=== PATIENT | male | born 1940 | race Caucasian/White ===

== ENCOUNTER 2020-03-30 09:23 | Emergency (ER) | payer MEDICARE, SELFPAY ==
[2020-03-30] VITALS (15 sets, daily range): BP systolic 139–208; BP diastolic 72–89; PULSE 73–87; RESP 14–27; TEMP 36.3; O2SAT 93–97; BMI 23.0
--- NOTE | 2020-03-30 09:29 | DI.RAD.S_ITS ---
PROCEDURE: XR CHEST 1V INDICATIONS: chest pain TECHNIQUE: One view of the chest was acquired. COMPARISON: [facility], , CHEST 2 VIEW, 08/12/2010, 8:20. FINDINGS: Surgical changes and devices: None. Lungs and pleura: Diffused bilateral pulmonary opacities are present. There is blunting of the costophrenic angles bilaterally, left greater than right. Mild increased opacity is noted in the left base and retrocardiac region. Mediastinum: Mediastinal contours appear normal. Heart size is enlarged. Bones and chest wall: No suspicious bony lesions. Overlying soft tissues appear unremarkable. IMPRESSION: Diffused bilateral pulmonary opacities are present. There is blunting of the costophrenic angles bilaterally, left greater than right. Overall appearance is suggestive of edema with superimposed areas questionable for airspace disease such as pneumonia and/or atelectasis. Dictated by: Julianna Del Rosario M.D. on 03/30/2020 at 10:15 Approved by: Julianna Del Rosario M.D. on 03/30/2020 at 10:17
[2020-03-30 09:49] LABS: Add Manual Diff / Slide Review NO; Basophils Absolute Auto 0 /uL (0-100); Basophils Percent Auto 0.3 % (0-2); Eosinophils Absolute Auto 100 /uL (0-450); Hematocrit 42.1 % (41-53); Hemoglobin 14.4 g/dL (13.5-17.5); Lymphocytes Absolute Auto 700 /uL (1100-4500); Lymphocytes Percent Auto 9.3 % (25-40); Mean Corpuscular HGB Conc 34.2 % (30-36); Mean Corpuscular Hemoglobin 29.3 PG (26-34); Mean Corpuscular Volume 85.7 fL (80-100); Monocytes Absolute Auto 700 /uL (0-900); Neutrophils Absolute Auto 5500 /uL (1500-7000); Neutrophils Percent Auto 78.4 % (50-75); Platelet Count 193 X10^3/uL (150-400); Red Blood Cell Count 4.92 X10^6/uL (4.5-5.9); Red Cell Distribution Width 14.3 % (11.6-14.8); White Blood Cell Count 7.1 X10^3/uL (4.5-11.0)
[2020-03-30 09:54] LABS: INR 1.1 (0.9-1.3); Prothrombin Time 12.8 SECONDS (10.1-12.7)
[2020-03-30 09:57] LABS: PTT Partial Thromboplastin Tim 34 SECONDS (26.4-36.2)
[2020-03-30 09:59] LABS: Alanine Aminotransferase 24 IU/L (<50); Albumin 4.2 g/dL (3.5-5.0); Albumin Globulin Ratio 1.1 (1.0-2.8); Alkaline Phosphatase 89 U/L (38-126); Aspartate Aminotransferase 27 IU/L (17-59); BUN Creatinine Ratio 15.9 (6-22); Bilirubin Total 0.9 mg/dL (0.2-1.3); Blood Urea Nitrogen 18 mg/dL (9-20); Calcium 9.1 mg/dL (8.4-10.2); Carbon Dioxide 25 mmol/L (22-32); Chloride 97 mmol/L (98-107); Creatine Kinase 59 U/L (55-170); Estimated Glomerular Filt Rate > 60.0 mL/min (>60); Globulin 3.7 g/dL (1.7-4.1); Glucose 109 mg/dL (80-110); HEMOLYSIS < 15 (0-50); Lipase 41 U/L (23-300); Potassium 4.4 mmol/L (3.4-5.1); Sodium 131 mmol/L (137-145); Total Protein 7.9 g/dL (6.3-8.2)
--- NOTE | 2020-03-30 10:17 | ED_ITS ---
HPI - Chest Pain General Chief Complaint: Chest Pain Stated Complaint: Mild Chest Pain Time Seen by Provider: 03/30/20 09:29 Source: patient Mode of arrival: Family Vehicle Limitations: no limitations History of Present Illness HPI narrative: Patient is a 80-year-old male with history of hypertension and PVCs presenting with left-sided chest pain. He states that over last month he has had increasing shortness of breath and cough.. He complains of orthopnea needing to sleep in a recliner. He has also had a nonproductive cough. Today he started noticing some left-sided chest achiness he says very mild now he thinks maybe he pulled something while coughing but does not hurt me takes a deep breath and is not reproducible. He says it radiates up into his left shoulder at times. He is noted actually be quite hypertensive he says he has been out of his blood pressure medication for about 2 months. He does get short of breath with exertion as well. He denies any fever no lower extremity edema. patient's DPOA is alexandra emery cell phone number [phone] complaint: chest pain Onset (ago): hour(s) Duration: constant Severity: mild Quality: aching Pain radiation: LUE Relieving factors: nothing Related Data Home Medications Medication Instructions Recorded Confirmed AMLODIPINE BESYLATE (NORVASC) 10 mg PO AM #0 03/22/10 TRIAMTERENE (Dyrenium) 37.5 mg PO AM #0 03/22/10 Allergies Allergy/AdvReac Type Severity Reaction Status Date / Time No Known Allergies Allergy Verified 03/30/20 10:30 Review of Systems Review of Systems ROS Unobtainable: All systems reviewed & are unremarkable except as noted in HPI and below Constitutional Constitutional: Denies chills, Denies fever(s), Denies lethargy and Denies weakness Eyes Eyes: Denies change in vision, Denies eye discharge, Denies irritation and Denies loss of vision Cardiovascular Cardiovascular: Reports chest pain, Denies irregular heart rhythm, Denies lightheadedness, Denies palpitations, Reports dyspnea and Denies orthopnea Respiratory Respiratory: Reports cough, Denies excessive phlegm production and Reports dyspnea Gastrointestinal Gastrointestinal: Denies abdominal pain, Denies change in bowel habits, Denies diarrhea, Denies nausea and Denies vomiting Musculoskeletal Musculoskeletal: Denies arthralgias and Denies back pain Integumentary/Breasts Skin/Breast: Denies pruritus, Denies erythema, Denies rash and Denies wounds Neurologic Neurologic: Denies loss of vision and Denies weakness Endocrine Endocrine: Denies palpitations Patient History Medical History Hypertension Social History Smoking Status: Former smoker Smoking Status: Former smoker alcohol intake frequency: 0-2 drinks per day Substance Use Type: does not use Exam Initial Vital Signs Initial Vital Signs: Vital Signs Temperature 97.4 F L 03/30/20 09:25 Pulse Rate 80 03/30/20 09:25 Respiratory Rate 18 03/30/20 09:25 Blood Pressure 166/79 H 03/30/20 09:25 Pulse Oximetry 96 03/30/20 09:25 GENERAL: Patient is alert pleasant male HEENT: Head atraumatic,EOMI, pupils reactive, face symmetric, moist mucous membranes CARDIOVASCULAR: Regular rate and rhythm without murmurs, rubs or gallops. Pain is not reproducible RESPIRATORY: Breath sounds equal bilaterally, no wheezes rales or rhonchi. ABDOMEN: Soft, nontender. Normoactive bowel sounds all 4 quadrants. No g uarding or rebound. EXTREMITIES: Normal range of motion, no clubbing or edema. Neurovascularly inta ct NEUROLOGICAL: Alert and oriented x4.Normal gait and speech. SKIN: Warm, dry, no laceration, no petechiae, no rashes or lesions. Course Orders Ordered: ED Orders 03/30/20 09:29 XR chest 1V Stat EKG-12 Lead Stat 03/30/20 09:40 Complete Blood Count AUTO DIFF Stat Comprehensive Metabolic Panel Stat D Dimer Stat Lipase Stat NT-proBNP (BNP-Adult 18+) Stat Partial Thromboplastin Time Stat Prothrombin Time INR Stat Troponin & CK Cardiac Panel Stat 03/30/20 10:33 EKG-12 Lead Stat 03/30/20 10:39 CT angio chest abdomen pelvis Stat 03/30/20 10:55 COVID19 Stat Discontinued Medications Aspirin (Aspirin 81 Mg Chew Tab) 324 mg PO NOW ONE Stop: 03/30/20 10:07 Last Admin: 03/30/20 10:24 Dose: 324 mg Documented by: CVANCE Furosemide (Furosemide 40 Mg/4 Ml Vial) 20 mg IV NOW ONE Stop: 03/30/20 10:35 Last Admin: 03/30/20 10:57 Dose: 20 mg Documented by: CARLOS ALBERTO Heparin Sodium (Porcine) (Heparin 5,000 Unit/Ml Vial) 4,000 unit IV NOW ONE Stop: 03/30/20 10:35 Last Admin: 03/30/20 11:00 Dose: 4,000 unit Documented by: CARLOS ALBERTO Heparin Sodium/Dextrose (Heparin Drip) 25,000 unit in 500 mls @ 17.962 mls/hr IV CONT AZUL; Protocol Last Admin: 03/30/20 11:02 Dose: 12 units/kg/hr, 17.962 mls/hr Documented by: CARLOS ALBERTO Nitroglycerin (Nitroglycerin 0.4 Mg Sl Tab) 0.4 mg SL NOW ONE Stop: 03/30/20 10:07 Last Admin: 03/30/20 10:25 Dose: 0.4 mg Documented by: CVANCE Vital Signs Vital signs: Vital Signs - 8 hr 03/30/20 09:25 03/30/20 09:31 03/30/20 10:00 Temperature 97.4 F L Pulse Rate 80 79 Respiratory Rate 18 19 Blood Pressure 166/79 H 166/79 H Pulse Oximetry 96 97 95 03/30/20 10:01 03/30/20 10:25 03/30/20 10:30 Temperature Pulse Rate 78 77 78 Respiratory Rate 21 Blood Pressure 208/87 H 208/87 H Pulse Oximetry 96 95 03/30/20 10:31 03/30/20 10:48 03/30/20 11:00 Temperature Pulse Rate 79 78 73 Respiratory Rate 16 20 18 Blood Pressure 139/72 145/83 H Pulse Oximetry 93 95 96 03/30/20 11:01 03/30/20 11:30 03/30/20 11:31 Temperature Pulse Rate 74 79 76 Respiratory Rate 16 14 15 Blood Pressure 178/79 H Pulse Oximetry 96 94 95 03/30/20 12:00 03/30/20 12:01 03/30/20 12:30 Temperature Pulse Rate 76 77 87 Respiratory Rate 20 20 27 H Blood Pressure 189/89 H 181/89 H Pulse Oximetry 96 96 94 MDM - Chest Pain Lab Data Attestation: I reviewed the patient's lab results. Result diagrams: 03/30/20 09:40 03/30/20 09:40 Labs: Lab Results 03/30/20 03/30/20 03/30/20 Range/Units 09:40 09:40 09:40 WBC 7.1 (4.5-11.0) X10^3/uL RBC 4.92 (4.5-5.9) X10^6/uL Hgb 14.4 (13.5-17.5) g/dL Hct 42.1 (41-53) % MCV 85.7 (80-100) fL MCH 29.3 (26-34) PG MCHC 34.2 (30-36) % RDW 14.3 (11.6-14.8) % Plt Count 193 (150-400) X10^3/uL Neut % (Auto) 78.4 H (50-75) % Lymph % (Auto) 9.3 L (25-40) % [place] % (Auto) 10.0 (3-14) % Eos % (Auto) 2.0 (2-4) % Baso % (Auto) 0.3 (0-2) % Neut # (Auto) 5500 (6101-9919) /uL Lymph # (Auto) 700 L (7994-3681) /uL [place] # (Auto) 700 (0-900) /uL Eos # (Auto) 100 (0-450) /uL Baso # (Auto) 0 (0-100) /uL PT 12.8 H (10.1-12.7) SECONDS INR 1.1 (0.9-1.3) APTT 34 (26.4-36.2) SECONDS D-Dimer (<230) ng/mL Sodium 131 L (137-145) mmol/L Potassium 4.4 (3.4-5.1) mmol/L Chloride 97 L (98-107) mmol/L Carbon Dioxide 25 (22-32) mmol/L BUN 18 (9-20) mg/dL Creatinine 1.13 (0.66-1.25) mg/dL Estimated GFR > 60.0 (>60) mL/min BUN/Creatinine Ratio 15.9 (6-22) Glucose 109 (80-110) mg/dL Calcium 9.1 (8.4-10.2) mg/dL Total Bilirubin 0.9 (0.2-1.3) mg/dL AST 27 (17-59) IU/L ALT 24 (<50) IU/L Alkaline Phosphatase 89 (38-126) U/L Total Creatine Kinase 59 (55-170) U/L CK-MB (CK-2) TNP CK-MB (CK-2) Rel Index TNP Troponin I 0.230 H* (0.01-0.034) ng/mL NT-Pro-B Natriuret Pep (<450) pg/mL Total Protein 7.9 (6.3-8.2) g/dL Albumin 4.2 (3.5-5.0) g/dL Globulin 3.7 (1.7-4.1) g/dL Albumin/Globulin Ratio 1.1 (1.0-2.8) Lipase 41 (23-300) U/L COVID-19 PCR (Negative) 03/30/20 03/30/20 03/30/20 Range/Units 09:40 09:40 10:55 WBC (4.5-11.0) X10^3/uL RBC (4.5-5.9) X10^6/uL Hgb (13.5-17.5) g/dL Hct (41-53) % MCV (80-100) fL MCH (26-34) PG MCHC (30-36) % RDW (11.6-14.8) % Plt Count (150-400) X10^3/uL Neut % (Auto) (50-75) % Lymph % (Auto) (25-40) % [place] % (Auto) (3-14) % Eos % (Auto) (2-4) % Baso % (Auto) (0-2) % Neut # (Auto) (8350-4869) /uL Lymph # (Auto) (8554-4311) /uL [place] # (Auto) (0-900) /uL Eos # (Auto) (0-450) /uL Baso # (Auto) (0-100) /uL PT (10.1-12.7) SECONDS INR (0.9-1.3) APTT (26.4-36.2) SECONDS D-Dimer < 200 (<230) ng/mL Sodium (137-145) mmol/L Potassium (3.4-5.1) mmol/L Chloride (98-107) mmol/L Carbon Dioxide (22-32) mmol/L BUN (9-20) mg/dL Creatinine (0.66-1.25) mg/dL Estimated GFR (>60) mL/min BUN/Creatinine Ratio (6-22) Glucose (80-110) mg/dL Calcium (8.4-10.2) mg/dL Total Bilirubin (0.2-1.3) mg/dL AST (17-59) IU/L ALT (<50) IU/L Alkaline Phosphatase (38-126) U/L Total Creatine Kinase (55-170) U/L CK-MB (CK-2) CK-MB (CK-2) Rel Index Troponin I (0.01-0.034) ng/mL NT-Pro-B Natriuret Pep 6440 H (<450) pg/mL Total Protein (6.3-8.2) g/dL Albumin (3.5-5.0) g/dL Globulin (1.7-4.1) g/dL Albumin/Globulin Ratio (1.0-2.8) Lipase (23-300) U/L COVID-19 PCR Negative (Negative) Urine Dip Bedside Urine Glucose Negative Bedside Urine Bilirubin - Negative Bedside Urine Ketone - Negative Urine Specific [place] 1.015 Bedside Urine Occult Blood - Negative Bedside Urine pH 6.0 Bedside Urine Protein - Negative Bedside Urine Urobilinogen - Negative Bedside Urine Nitrite - Negative Bedside Urine Leukocytes - Negative Esterase Imaging Data Chest x-ray: Radiologist's Impression: PROCEDURE: XR CHEST 1V INDICATIONS: chest pain TECHNIQUE: One view of the chest was acquired. COMPARISON: Merged With [facility], , CHEST 2 VIEW, 08/12/2010, 8:20. FINDINGS: Surgical changes and devices: None. Lungs and pleura: Diffused bilateral pulmonary opacities are present. There is blunting of the costophrenic angles bilaterally, left greater than right. Mild increased opacity is noted in the left base and retrocardiac region. Mediastinum: Mediastinal contours appear normal. Heart size is enlarged. Bones and chest wall: No suspicious bony lesions. Overlying soft tissues appear unremarkable. IMPRESSION: Diffused bilateral pulmonary opacities are present. There is blunting of the costophrenic angles bilaterally, left greater than right. Overall appearance is suggestive of edema with superimposed areas questionable for airspace disease such as pneumonia and/or atelectasis. Dictated by: Julianna Del Rosario M.D. on 03/30/2020 at 10:15 CT scan - chest: Radiologist's Impression: PROCEDURE: CT ANGIO CHEST ABDOMEN PELVIS INDICATIONS: chest pain htn TECHNIQUE: Precontrast 5 mm thick sections acquired from the lung apices to the iliac crests. After the administration of intravenous contrast, 2.5 mm thick sections again acquired from the lung apices to the iliac crests. Maximum intensity projection (MIP) oblique sagittal and coronal reformats were then acquired. For radiation dose reduction, the following was used: automated exposure control. COMPARISON: CT, IVP (ABD & PEL WWO CONTRAST), 03/23/2013, 7:15. Merged With [facility], CT, CT-IVP, 02/25/2010, 10:20. Merged With [facility], CR, XR CHEST 1V, 03/30/2020, 9:36. FINDINGS: Image quality: Excellent. AORTA: Noncontrast images demonstrate no evidence of intramural hematoma. There is extensive atherosclerotic vascular calcification along the aorta and its branch vessels. The aorta is normal in caliber and contour. No intimal flaps to suggest dissection. There is a 4 vessel aortic arch with separate origin of the left vertebral artery. 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 There is subsequent reconstitution of the left subclavian artery through collateral vessels. The left axillary and visualized left brachial arteries appear patent. The remaining great vessels appear patent with visualized. The celiac, superior mesenteric, and inferior mesenteric arteries appear patent. There are single renal arteries bilaterally. There is atherosclerotic plaque at the origins of the renal arteries bilaterally with narrowing of up to approximately 50-60% of the right renal artery ostium. On the left, there is mild narrowing of less than 50% at its origin. There is segmental narrowing in the right common iliac artery up to approximately 50%. There is also mild narrowing in the left common iliac artery of less than 50%. Multifocal mild narrowing is also demonstrated within the bilateral external and internal iliac arteries of likely less than 50%. CHEST: Lungs and pleura: There are small bilateral pleural effusions with associated compressive atelectasis. There are a few confluent areas of indistinct ground- glass opacities with septal thickening in the bilateral upper lobes medially. There is mild bronchiectasis bilaterally and mild bronchial wall thickening with a basilar predominance. Mediastinum: Heart size is enlarged. There is moderate coronary arterial vascular calcification. There is a small pericardial effusion. There are mildly enlarged mediastinal lymph nodes including a right paratracheal node measuring up to 1.1 cm. A insurance verification representative aortopulmonary window node measures up to 1.1 cm. Mild concentric esophageal wall thickening is demonstrated distally. Bones and chest wall: No axillary adenopathy by size criteria. No suspicious bony lesions. No vertebral body compression fractures. ABDOMEN: Vasculature: Celiac trunk and mesenteric arteries are patent. Renal arteries are also patent. Solid organs: Evaluation of the liver demonstrates no focal hepatic lesions. The gallbladder appears within normal limits without calcified gallstones. Biliary system is non-dilated. Pancreas enhances normally. No peripancreatic fat stranding or fluid collections. No pancreatic duct dilatation. The spleen is normal in size. T here is an indeterminate left adrenal nodule measuring up to 2.2 by 1.6 cm. Kidneys demonstrate no hydronephrosis. There are few bilateral renal cysts. These include exophytic hyperdense cysts posteriorly on the right measuring up to 2.1 cm and laterally on the left measuring up to 2.0 cm. Peritoneum and bowel: No free fluid or air. Bowel loops are normal in caliber and wall thickness. Nodes and vessels: No retroperitoneal or mesenteric adenopathy by size criteria. Inferior vena cava is normal in morphology. Miscellaneous: No ventral hernias. PELVIS: Genitourinary: Bladder wall thickness is normal. Miscellaneous: No inguinal hernias or adenopathy. No ventral hernias. Bones: No suspicious bony lesions. There are few mild anterior compression deformities of the lower thoracic and upper lumbar spine which appears similar to the prior abdominal studies with visualized. No retropulsed fragments in the spinal canal. IMPRESSION: 1. No evidence of aortic dissection or aneurysm. 2. 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 3. Small bilateral pleural effusions with associated compressive atelectasis. 4. Bilateral mild bronchiectasis and bronchial wall thickening with a basilar predominance. Findings raise the possibility of aspiration. 5. Small clustered ground-glass opacities with septal thickening in the upper lobes. The findings are nonspecific and the differential includes pneumonia including from atypical organisms as well as inflammatory processes. 6. Mild mediastinal lymphadenopathy is nonspecific and may be reactive. Dictated by: Eugene Canas M.D. on 03/30/2020 at 10:55 ECG Data Attestation: I personally reviewed and interpreted this ECG as follows: Interpretation: -EKG 1. Sinus rhythm rate 82 with PVCs noted T-wave inversions noted be [address] elevations EKG 2. Sinus rhythm rate 78 PVCs again noted now having T-wave inversions V4 V5 and V6 MDM Narrative Medical decision making narrative: Patient is having left-sided chest pain radiating up to his left shoulder. Sounds though he has had CHF like symptoms ongoing for about 1 month with orthopnea. And shortness of breath with exertion. BNP 8 is elevated at 6400. Pain is completely resolved with 1 n itroglycerin. He states that he has not been taking his blood pressure medication for about the last 2 months. Due to hypertension and left-sided chest pain ruled out dissection with CT [address] Palencia cardiology at [facility] updated on patient's symptoms test results agrees with admitting to hospitalist at this time 11:20 Dr. Wyatt Rehman to the hospitalist updated patient's symptoms test results agrees with admission and transfer The patient's DPOA is alexandra stajhonny emery cell phone number [phone] Critical Care Time Critical Care Time Critical Care Time: Yes Total Critical Care Time: 30 Attestation: The high probability of a clinically significant, sudden or life threatening deterioration of the [cardiovascular] system(s) required my full and direct attention, intervention and personal management. The aggregate critical care time was 30 minutes. This time is in addition to time spent performing reported procedures but includes the following: [x] Data Review and interpretation [x] Patient assessment and monitoring of vital signs [x] Documentation [x] Medication orders and management Discharge Plan Departure Patient Disposition: Xfer [facility] Clinical Impression: Acute non-ST elevation myocardial infarction (NSTEMI), CHF (congestive heart failure) Prescriptions: No Action AMLODIPINE BESYLATE (NORVASC) 10 mg PO AM Qty: 0 RF: 0 TRIAMTERENE (Dyrenium) 37.5 mg PO AM Qty: 0 RF: 0 Referrals: Rene Claros MD [Primary Care Provider] -
[2020-03-30] MEDS: ASPIRIN 81 MG CHEW TAB 324 MG PO (10:24)
[2020-03-30] MEDS: NITROGLYCERIN 0.4 MG SL TAB SL (10:25)
[2020-03-30 10:26] LABS: D Dimer < 200 ng/mL (<230)
[2020-03-30 10:31] LABS: NT-proBNP (BNP-Adult 18+) 6440 pg/mL (<450)
--- NOTE | 2020-03-30 10:39 | DI.CT.S_ITS ---
PROCEDURE: CT ANGIO CHEST ABDOMEN PELVIS INDICATIONS: chest pain htn TECHNIQUE: Precontrast 5 mm thick sections acquired from the lung apices to the iliac crests. After the administration of intravenous contrast, 2.5 mm thick sections again acquired from the lung apices to the iliac crests. Maximum intensity projection (MIP) oblique sagittal and coronal reformats were then acquired. For radiation dose reduction, the following was used: automated exposure control. COMPARISON: CT, IVP (ABD & PEL WWO CONTRAST), 03/23/2013, 7:15. [facility], CT, CT-IVP, 02/25/2010, 10:20. [facility], CR, XR CHEST 1V, 03/30/2020, 9:36. FINDINGS: Image quality: Excellent. AORTA: Noncontrast images demonstrate no evidence of intramural hematoma. There is extensive atherosclerotic vascular calcification along the aorta and its branch vessels. The aorta is normal in caliber and contour. No intimal flaps to suggest dissection. There is a 4 vessel aortic arch with separate origin of the left vertebral artery. 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 There is subsequent reconstitution of the left subclavian artery through collateral vessels. The left axillary and visualized left brachial arteries appear patent. The remaining great vessels appear patent with visualized. The celiac, superior mesenteric, and inferior mesenteric arteries appear patent. There are single renal arteries bilaterally. There is atherosclerotic plaque at the origins of the renal arteries bilaterally with narrowing of up to approximately 50-60% of the right renal artery ostium. On the left, there is mild narrowing of less than 50% at its origin. There is segmental narrowing in the right common iliac artery up to approximately 50%. There is also mild narrowing in the left common iliac artery of less than 50%. Multifocal mild narrowing is also demonstrated within the bilateral external and internal iliac arteries of likely less than 50%. CHEST: Lungs and pleura: There are small bilateral pleural effusions with associated compressive atelectasis. There are a few confluent areas of indistinct ground-glass opacities with septal thickening in the bilateral upper lobes medially. There is mild bronchiectasis bilaterally and mild bronchial wall thickening with a basilar predominance. Mediastinum: Heart size is enlarged. There is moderate coronary arterial vascular calcification. There is a small pericardial effusion. There are mildly enlarged mediastinal lymph nodes including a right paratracheal node measuring up to 1.1 cm. A sales representative uniforms aortopulmonary window node measures up to 1.1 cm. Mild concentric esophageal wall thickening is demonstrated distally. Bones and chest wall: No axillary adenopathy by size criteria. No suspicious bony lesions. No vertebral body compression fractures. ABDOMEN: Vasculature: Celiac trunk and mesenteric arteries are patent. Renal arteries are also patent. Solid organs: Evaluation of the liver demonstrates no focal hepatic lesions. The gallbladder appears within normal limits without calcified gallstones. Biliary system is non-dilated. Pancreas enhances normally. No peripancreatic fat stranding or fluid collections. No pancreatic duct dilatation. The spleen is normal in size. There is an indeterminate left adrenal nodule measuring up to 2.2 by 1.6 cm. Kidneys demonstrate no hydronephrosis. There are few bilateral renal cysts. These include exophytic hyperdense cysts posteriorly on the right measuring up to 2.1 cm and laterally on the left measuring up to 2.0 cm. Peritoneum and bowel: No free fluid or air. Bowel loops are normal in caliber and wall thickness. Nodes and vessels: No retroperitoneal or mesenteric adenopathy by size criteria. Inferior vena cava is normal in morphology. Miscellaneous: No ventral hernias. PELVIS: Genitourinary: Bladder wall thickness is normal. Miscellaneous: No inguinal hernias or adenopathy. No ventral hernias. Bones: No suspicious bony lesions. There are few mild anterior compression deformities of the lower thoracic and upper lumbar spine which appears similar to the prior abdominal studies with visualized. No retropulsed fragments in the spinal canal. IMPRESSION: 1. No evidence of aortic dissection or aneurysm. 2. 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 3. Small bilateral pleural effusions with associated compressive atelectasis. 4. Bilateral mild bronchiectasis and bronchial wall thickening with a basilar predominance. Findings raise the possibility of aspiration. 5. Small clustered ground-glass opacities with septal thickening in the upper lobes. The findings are nonspecific and the differential includes pneumonia including from atypical organisms as well as inflammatory processes. 6. Mild mediastinal lymphadenopathy is nonspecific and may be reactive. Dictated by: Eugene Canas M.D. on 03/30/2020 at 10:55 Approved by: Eugene Canas M.D. on 03/30/2020 at 11:28
[2020-03-30] MEDS: FUROSEMIDE 40 MG/4 ML VIAL 20 MG IV (10:57)
[2020-03-30] MEDS: HEPARIN 5,000 UNIT/ML VIAL 4000 UNIT IV (11:00)
[2020-03-30] MEDS: HEPARIN DRIP 25,000 UNIT/500 ML IV.SOLN 17.962 UNIT IV (11:02)
[2020-03-30 11:24] LABS: COVID19 -Nasal RAPID Negative (Negative)
--- NOTE | 2020-04-13 18:45 | PC.NURSE ---
Heparin Gtt stop time 1246 upon patient's transfer to [place]. Heparin drip was still infusing with [employer] crew without incident in ambulance.
== END 2020-03-30 12:51 | disposition short-term general hospital (02) ==
PROVIDERS: Emergency Provider Emergency Medicine; Family Provider Family Medicine; PCP Family Medicine
DX: I21.4 Non-ST elevation (NSTEMI) myocardial infarction (principal); I11.0 Hypertensive heart disease with heart failure; I50.9 Heart failure, unspecified; R06.02 Shortness of breath; R05 Cough
CPT/HCPCS: 36415; 71045; 71275; 74174; 80053; 81003; 82550; 83690; 83880; 84484; 85025; 85379; 85610; 85730; 87635; 93005; 96365; 96366; 96375; 99284; 99291; J1644; J1940; Q9967

== ENCOUNTER 2020-08-08 23:48 | Observation (INO) | payer MEDICARE, SELFPAY ==
[2020-08-09] VITALS (27 sets, daily range): BP systolic 109–158; BP diastolic 60–94; PULSE 48–139; RESP 18–32; TEMP 36.2–36.7; O2SAT 92–97; BMI 22.6
--- NOTE | 2020-08-09 00:05 | DI.RAD.S_ITS ---
PROCEDURE: XR CHEST 1V INDICATIONS: Shortness of breath TECHNIQUE: One view of the chest was acquired. COMPARISON: [facility], , XR CHEST 1V, 03/30/2020, 9:36. FINDINGS: Surgical changes and devices: None. Lungs and pleura: Consolidation noted in the left lung base concerning for aspiration versus pneumonia. There is cephalization of pulmonary vasculature and interstitial prominence concerning for CHF. Mediastinum: Mediastinal contours appear normal. Heart is enlarged.. Bones and chest wall: No suspicious bony lesions. Overlying soft tissues appear unremarkable. IMPRESSION: 1. Focal consolidation left lung base concerning for aspiration versus pneumonia. 2. Probable CHF. Dictated by: Jessica Garrison MD, PhD on 08/09/2020 at 9:20 Approved by: Jessica Garrison MD, PhD on 08/09/2020 at 9:27
[2020-08-09] MEDS: ENOXAPARIN 40 MG/0.4 ML SYRINGE 68 MG SUBCUT (00:15)
[2020-08-09] MEDS: dilTIAZem 5 MG/ML SDV 20 MG IV (00:15)
[2020-08-09 00:21] LABS: Add Manual Diff / Slide Review NO; Basophils Absolute Auto 100 /uL (0-100); Basophils Percent Auto 1.6 % (0-2); Eosinophils Absolute Auto 200 /uL (0-450); Eosinophils Percent Auto 2.7 % (2-4); Hematocrit 46.3 % (41-53); Hemoglobin 15.3 g/dL (13.5-17.5); Lymphocytes Absolute Auto 1100 /uL (1100-4500); Lymphocytes Percent Auto 16.3 % (25-40); Mean Corpuscular Hemoglobin 29.8 PG (26-34); Mean Corpuscular Volume 90.5 fL (80-100); Monocytes Absolute Auto 700 /uL (0-900); Monocytes Percent Auto 9.7 % (3-14); Neutrophils Absolute Auto 4800 /uL (1500-7000); Neutrophils Percent Auto 69.7 % (50-75); Platelet Count 195 X10^3/uL (150-400); Red Blood Cell Count 5.12 X10^6/uL (4.5-5.9); White Blood Cell Count 6.9 X10^3/uL (4.5-11.0)
[2020-08-09 00:24] LABS: INR 1.1 (0.9-1.3)
[2020-08-09 00:29] LABS: Albumin 3.7 g/dL (3.5-5.0); Albumin Globulin Ratio 1.2 (1.0-2.8); Alkaline Phosphatase 78 U/L (38-126); Aspartate Aminotransferase 41 IU/L (17-59); Bilirubin Total 0.8 mg/dL (0.2-1.3); Blood Urea Nitrogen 32 mg/dL (9-20); Calcium 9.2 mg/dL (8.4-10.2); Carbon Dioxide 21 mmol/L (22-32); Chloride 108 mmol/L (98-107); Creatine Kinase 80 U/L (55-170); Estimated Glomerular Filt Rate 56.9 mL/min (>60); Globulin 3.2 g/dL (1.7-4.1); Glucose 140 mg/dL (80-110); Lipase 44 U/L (23-300); Sodium 139 mmol/L (137-145); Total Protein 6.9 g/dL (6.3-8.2)
[2020-08-09 00:41] LABS: NT-proBNP (BNP-Adult 18+) 25600 pg/mL (<450); Troponin I 0.078 ng/mL (0.01-0.034)
--- NOTE | 2020-08-09 00:41 | PC.NURSE ---
cardizem gtt was stopped at 0037 after 0.8ml infused.
[2020-08-09 00:51] LABS: HEMOLYSIS 66 (0-50); Potassium 4.5 mmol/L (3.4-5.1)
[2020-08-09 00:52] LABS: Alanine Aminotransferase 59 IU/L (<50)
--- NOTE | 2020-08-09 01:23 | ED_ITS ---
HPI - SOB/Dyspnea General Chief Complaint: Shortness of Breath/Dyspnea Stated Complaint: SOB Time Seen by Provider: 08/08/20 23:50 Source: patient Mode of arrival: Ambulatory Limitations: no limitations History of Present Illness HPI Narrative: 72-year-old male former smoker with history of hypertension, coronary artery disease with multiple stents, [facility] [place] in [place]. 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 Minimal exertion makes the patient profoundly short of breath and he became so short of breath walking about 10 ft from our registration desk to triage that we had to pull a hospital cart in to get him in his room. He is not dizzy nor weak or lightheaded but does complain of increasing chest pressure over the past few days as well. He denies any radiation of the discomfort. He states it seems to intensify with exertion as well. He denies any nausea or vomiting. Denies any change in bowel or bladder habits. He denies any change in medications or diet and states his only medication is Metoprolol and aspirin. He states he was on a number of medications upon discharge from [facility] but he didn't tolerate many of them well a nd his doctors have gradually decreased them down to his current regimen. His PCP is Dr. Harlan ROSS Complaint: shortness of breath Onset (ago): day(s) Severity: severe Consistency/Duration: constant Relieving factors: rest Exacerbating factors: exertion Known history of: congestive heart failure Associated symptoms: chest pain Treatment prior to arrival: none Related Data Home oxygen amount: none Home Medications Medication Instructions Recorded Confirmed AMLODIPINE BESYLATE (NORVASC) 10 mg PO AM #0 03/22/10 TRIAMTERENE (Dyrenium) 37.5 mg PO AM #0 03/22/10 Allergies Allergy/AdvReac Type Severity Reaction Status Date / Time No Known Allergies Allergy Verified 03/30/20 10:30 Review of Systems Constitutional Constitutional: Denies chills, Denies fatigue, Denies fever(s), Denies frequent falls, Denies lethargy and Denies weakness Eyes Eyes: Denies change in vision, Denies eye discharge, Denies irritation and Denies loss of vision ENT Ears, Nose, Mouth, and Throat: Denies change in voice, Denies dizziness, Denies neck pain, Denies sore throat and Denies throat swelling Cardiovascular Cardiovascular: Reports chest pain, Denies irregular heart rhythm, Denies lightheadedness, Reports dyspnea, Reports dyspnea on exertion and Denies orthopnea Respiratory Respiratory: Reports dyspnea, Reports dyspnea on exertion and Denies wheezing Gastrointestinal Gastrointestinal: Denies abdominal pain, Denies change in bowel habits, Denies diarrhea, Denies nausea and Denies vomiting Musculoskeletal Musculoskeletal: Denies neck pain and Denies numbness Integumentary/Breasts Skin/Breast: Denies pruritus, Denies erythema, Denies rash and Denies wounds Neurologic Neurologic: Denies behavioral changes, Denies confusion, Denies dizziness, Denies frequent falls, Denies loss of vision, Denies numbness and Denies weakness Psychiatric Psychiatric: Denies anxiety, Denies behavioral changes, Denies confusion, Denies depression, Denies homicidal ideation and Denies suicidal ideation Endocrine Endocrine: Denies fatigue and Denies flushing Hematologic/Lymphatic Hematologic/Lymphatic: Denies easy bruising Allergic/Immunologic Allergic/Immunologic: Denies urticaria, Denies throat swelling and Denies wheezing Patient History Medical History Hypertension Social History Smoking Status: Former smoker Smoking Status: Former smoker alcohol intake frequency: 0-2 drinks per day Substance Use Type: does not use Exam Narrative Exam Narrative: GENERAL: [80] year old patient appears older than stated age. He is thin and in significant distress, profoundly short of breath and unable to complete more than 1 or 2 words on initial exam HEAD: Atraumatic. Normocephalic. EYES: Pupils equal round and reactive. Extraocular motions intact. No scleral icterus. No injection or drainage. ENT: Nose without bleeding, purulent drainage. Throat without erythema, tonsillar hypertrophy or exudate. Airway patent. NECK: Trachea midline. Non tender CARDIOVASCULAR: Tachycardic and irregular without murmurs, gallops, or rubs. RESPIRATORY: Obvious increased work of breathing, rapid, shallow breaths with faint crackles in left greater than right base. GASTROINTESTINAL: Abdomen soft, non-tender, nondistended. EXTREMITIES: No edema or joint tenderness. BACK: Nontender without deformity or crepitance. No flank tenderness. NEURO: AOx3. SKIN: No rash or erythema of visible areas Initial Vital Signs Initial Vital Signs: Vital Signs Temperature 97.9 F 08/09/20 00:08 Pulse Rate 139 H 08/09/20 00:08 Respiratory Rate 32 H 08/09/20 00:08 Blood Pressure 140/83 08/09/20 00:08 Pulse Oximetry 96 08/09/20 00:08 Course Orders Ordered: ED Orders 08/09/20 EKG-12 Lead Stat 08/09/20 00:05 XR chest 1V Stat Complete Blood Count AUTO DIFF Stat Comprehensive Metabolic Panel Stat Lipase Stat NT-proBNP (BNP-Adult 18+) Stat Prothrombin Time INR Stat Troponin & CK Cardiac Panel Stat EKG-12 Lead Stat 08/09/20 01:53 COVID19 - ADMIT ([employer]SI[employer]ENDER swab/PCR) Stat Diltiazem HCl 125 mg/ Sodium (Chloride) 125 mls @ 5 mls/hr IV TITRATE AZUL; Protocol Last Admin: 08/09/20 00:30 Dose: 5 mg/hr, 5 mls/hr Documented by: Sodium Chloride (Normal Saline 0.9%) 1,000 mls @ 150 mls/hr IV CONT AZUL Last Admin: 08/09/20 01:29 Dose: Not Given Documented by: Discontinued Medications Aspirin (Aspirin 81 Mg Chew Tab) 324 mg PO NOW ONE Stop: 08/09/20 01:53 Diltiazem HCl (Diltiazem 5 Mg/Ml Sdv) 20 mg IV NOW ONE Stop: 08/09/20 00:06 Last Admin: 08/09/20 00:15 Dose: 20 mg Documented by: RASHEL Enoxaparin Sodium (Enoxaparin 40 Mg/0.4 Ml Syringe) 68 mg SUBCUT NOW ONE Stop: 08/09/20 00:06 Last Admin: 08/09/20 00:15 Dose: 68 mg Documented by: RASHEL Furosemide (Furosemide 40 Mg/4 Ml Vial) 40 mg IV NOW ONE Stop: 08/09/20 01:53 Reevaluation(s) Reevaluation #1: patient continues to rest comfortably, no more SOB, no CP Consultations Consultation #1: call to Cardio at [facility] to discuss case. He is pleased with improved clinical status. Recommends admission to trend troponin, diurese, stabilize medications. No need for transfer unless conditions change Vital Signs Vital signs: Vital Signs - 8 hr 08/09/20 00:08 08/09/20 00:19 08/09/20 00:24 Temperature 97.9 F Pulse Rate 139 H 128 H 52 L Respiratory Rate 32 H 24 22 Blood Pressure 140/83 148/65 H Pulse Oximetry 96 97 94 08/09/20 00:30 08/09/20 00:35 08/09/20 00:36 Temperature Pulse Rate 49 L 48 L 48 L Respiratory Rate 19 23 23 Blood Pressure 150/67 H 155/68 H Pulse Oximetry 95 93 93 08/09/20 00:40 08/09/20 00:46 08/09/20 00:50 Temperature Pulse Rate 61 49 L 51 L Respiratory Rate 22 21 23 Blood Pressure 139/69 139/60 111/64 Pulse Oximetry 94 94 93 08/09/20 00:56 08/09/20 01:00 08/09/20 01:05 Temperature Pulse Rate 59 L 51 L 56 L Respiratory Rate 22 19 19 Blood Pressure 148/66 H 128/63 144/67 H Pulse Oximetry 93 93 93 MDM - SOB/Dyspnea Lab Data Result diagrams: 08/09/20 00:05 08/09/20 00:05 Labs: Lab Results 08/09/20 08/09/20 08/09/20 Range/Units 00:05 00:05 00:05 WBC 6.9 (4.5-11.0) X10^3/uL RBC 5.12 (4.5-5.9) X10^6/uL Hgb 15.3 (13.5-17.5) g/dL Hct 46.3 (41-53) % MCV 90.5 (80-100) fL MCH 29.8 (26-34) PG MCHC 33.0 (30-36) % RDW 17.0 H (11.6-14.8) % Plt Count 195 (150-400) X10^3/uL Neut % (Auto) 69.7 (50-75) % Lymph % (Auto) 16.3 L (25-40) % Valencia % (Auto) 9.7 (3-14) % Eos % (Auto) 2.7 (2-4) % Baso % (Auto) 1.6 (0-2) % Neut # (Auto) 4800 (4375-6171) /uL Lymph # (Auto) 1100 (2520-4651) /uL Valencia # (Auto) 700 (0-900) /uL Eos # (Auto) 200 (0-450) /uL Baso # (Auto) 100 (0-100) /uL PT 13.0 H (10.1-12.7) SECONDS INR 1.1 (0.9-1.3) Sodium 139 (137-145) mmol/L Potassium 4.5 (3.4-5.1) mmol/L Chloride 108 H (98-107) mmol/L Carbon Dioxide 21 L (22-32) mmol/L BUN 32 H (9-20) mg/dL Creatinine 1.23 (0.66-1.25) mg/dL Estimated GFR 56.9 L (>60) mL/min BUN/Creatinine Ratio 26.0 H (6-22) Glucose 140 H (80-110) mg/dL Calcium 9.2 (8.4-10.2) mg/dL Total Bilirubin 0.8 (0.2-1.3) mg/dL AST 41 (17-59) IU/L ALT 59 H (<50) IU/L Alkaline Phosphatase 78 (38-126) U/L Total Creatine Kinase 80 (55-170) U/L CK-MB (CK-2) TNP CK-MB (CK-2) Rel Index TNP Troponin I 0.078 H (0.01-0.034) ng/mL NT-Pro-B Natriuret Pep 75325 H (<450) pg/mL Total Protein 6.9 (6.3-8.2) g/dL Albumin 3.7 (3.5-5.0) g/dL Globulin 3.2 (1.7-4.1) g/dL Albumin/Globulin Ratio 1.2 (1.0-2.8) Lipase 44 (23-300) U/L Imaging Data Chest x-ray: Radiologist's Impression: Acute CHF ECG Data Attestation: I personally reviewed and interpreted this ECG as follows: Interpretation: Rapid Atrial fib with rate 170s, mild ST depressions, no elevations EKG #2: Sinus bradycardia with rate 59, w/sinus arrhythmia. ID 168. QRS 132. QT 452. T wave inversion V5/V6 (similar to March) Discharge Plan Departure Clinical Impression: Atrial fibrillation, new onset Pulmonary edema Qualifiers: Chronicity: acute Qualified Code(s): J81.0 - Acute pulmonary edema Prescriptions: No Action AMLODIPINE BESYLATE (NORVASC) 10 mg PO AM Qty: 0 RF: 0 TRIAMTERENE (Dyrenium) 37.5 mg PO AM Qty: 0 RF: 0 Referrals: Rene Claros MD [Primary Care Provider] -
--- NOTE | 2020-08-09 02:13 | PC.NURSE ---
He received 0.8 ml cardizem gtt at 0030 on 08/09/20.
[2020-08-09] MEDS: ASPIRIN 81 MG CHEW TAB 324 MG PO (02:19)
[2020-08-09] MEDS: FUROSEMIDE 40 MG/4 ML VIAL IV ×2 (02:19→09:40)
[2020-08-09 02:49] LABS: COVID19 - ADMIT (NP swab/PCR) Negative (Negative)
--- NOTE | 2020-08-09 03:21 | DI.ECHO.S_ITS ---
[facility]---------+ [facility] +---------+ : : [address] : : : : [id number] : : : : Phone: [phone]+ Echocardiogram Report + + :Name: MIGUEL MAO Study Date: 08/09/2020 Height: 72 in : :[facility] ReadingLocation: Weight: 150 lb : : Gender: Male BSA: 1.9 m2 : :: 1940 Age: 80 yrs BP: 125/75 mmHg: :Reason For Study: ATRIAL FIBRILLATION : :Ordering Physician: NIKA, : :KAYKAY Performed By: Mary Hawk : :Referring: KAYKAY MAHER : + + Interpretation Summary The left ventricle is severely dilated. The ejection fraction is estimated to be 15-20%.Left ventricular function has significantly worsened There is severe global hypokinesis of the left ventricle. There is no obvious LV thrombus. The right ventricle is mildly dilated. Right ventricular systolic function is at the lower limits of normal. There is mild aortic regurgitation. There is mild mitral regurgitation. There is mild to moderate tricuspid regurgitation. Compared to the prior echo exam, there has been an increase in TR severity. Pulmonary artery pressures cannot be estimated because of the lack of a measurable TR jet velocity but the IVC suggests a CVP of around 15 mmHg. There is a moderate left-sided pleural effusion. Procedure: A two-dimensional transthoracic echocardiogram with color flow and Doppler was performed. The study quality was technically difficult. Comparison is made with the echocardiogram of 01/03/2011. The patient was in sinus bradycardia with heart rates between 45-67 bpm during the exam. The patient had occasional PVCs during the exam. Left Ventricle: The left ventricle is severely dilated. The estimated left ventricular end diastolic volume is 212 ml. There is no thrombus. The ejection fraction is estimated to be 15-20%. Left ventricular function has significantly worsened compared to the previous exam. There is severe global hypokinesis of the left ventricle. MV E/A: 0.74 Med Peak E' Sulaiman: 3.3 cm/sec E/E' med: 16.6. Right Ventricle: The right ventricle is mildly dilated. Right ventricular systolic function is at the lower limits of normal. Atria: The left atrium is severely dilated. The left atrium has mildly increased in size since the prior echo exam. The right atrium is severely dilated. There is no Doppler evidence for an interatrial shunt. Mitral Valve: The mitral valve leaflets appear borderline thickened, but open well. There is mild mitral annular calcification. There is mild mitral regurgitation. Aortic Valve: The aortic valve is grossly normal. The aortic valve is trileaflet. The aortic valve is not well visualized. There is no hemodynamically significant valvular aortic stenosis. There is mild aortic regurgitation. Tricuspid Valve: The tricuspid valve is not well visualized, but is grossly normal. Pulmonary artery pressures cannot be estimated because of the lack of a measurable TR jet velocity but the IVC suggests a CVP of around 15 mmHg. There is mild to moderate tricuspid regurgitation. Compared to the prior echo exam, there has been an increase in TR severity. Pulmonic Valve: The pulmonic valve is not well visualized. There is mild pulmonic regurgitation. Great Vessels: The aortic root is normal size. The ascending aorta could not be visualized. The IVC is dilated (diameter is greater than 2.1 cm) and it collapses less than 50% with a sniff. This suggests a high right atrial pressure of 15 mm Hg. Pericardium/ Pleura There is no pericardial effusion. There is a moderate left-sided pleural effusion. MMode/2D Measurements & Calculations LVIDd: 7.0 cm LVOT diam: 2.5 cm LVIDs: 5.8 cm Ao root diam: 3.3 cm FS: 16.7 % Ao Arch Diam (Prox Trans): 2.3 cm EPSS: 2.2 cm IVSd: 1.0 cm LVPWd: 0.99 cm LV dolan. diameter/BSA (cm/m^2): 3.7 LV sys. diameter/BSA (cm/m^2): 3.1 LA A2 area: 32.2 cm2 RA long axis: 5.7 cm LA A4 area: 33.2 cm2 RA area: 24.6 cm2 LA length (vol): 7.2 cm RA vol: 90.1 ml LA vol: 126.3 ml RA : 47.8 ml/m2 LA vol index: 67.0 ml/m2 IVC diam: 2.6 cm RVD1 (basal): 3.6 cm TAPSE: 1.9 cm Doppler Measurements & Calculations Ao V2 max: 125.7 cm/sec LVOT Max Sulaiman: 57.1 cm/sec Ao V2 mean: 87.2 cm/sec LV V1 max P.3 mmHg Ao max P.3 mmHg LV V1 VTI: 11.9 cm Ao mean P.5 mmHg MICAH(I,D): 2.5 cm2 Ao V2 VTI: 23.0 cm MICAH(V,D): 2.2 cm2 sev ratio: 0.52 MICAH indexed to BSA (cm^2/m^2): 1.4 MV E max sulaiman: 54.0 cm/sec PA V2 max: 113.7 cm/sec MV A max sulaiman: 72.7 cm/sec PA V2 mean: 80.8 cm/sec MV E/A: 0.74 PA mean P.9 mmHg Med Peak E' Sulaiman: 3.3 cm/sec PA pr(Accel): 34.5 mmHg E/E' med: 16.6 Lat Peak E' Sulaiman: 3.6 cm/sec E/E' lat: 15.0 E/e' average: 15.8 MV dec time: 0.47 sec SV(LVOT): 58.6 ml Reading Physician:11:56 AM
[2020-08-09 04:28] LABS: Troponin I 0.105 ng/mL (0.01-0.034)
--- NOTE | 2020-08-09 06:48 | PC.ADMIT ---
49 [facility] Admission Note: The patient,Duane Zamora,80 y/o, was given written information regarding hospital policies, unit procedures and contact persons. Patient's smoking status: Former smoker. Pt arrived to unit stable and ambulatory, able to walk and talk in complete sentences. Pt oriented to room, able to make needs known. Vital Signs - 8 hr 08/09/20 00:08 08/09/20 00:19 08/09/20 00:24 Temperature 97.9 F Pulse Rate 139 H 128 H 52 L Respiratory Rate 32 H 24 22 Blood Pressure 140/83 148/65 H Pulse Oximetry 96 97 94 08/09/20 00:30 08/09/20 00:35 08/09/20 00:36 Temperature Pulse Rate 49 L 48 L 48 L Respiratory Rate 19 23 23 Blood Pressure 150/67 H 155/68 H Pulse Oximetry 95 93 93 08/09/20 00:40 08/09/20 00:46 08/09/20 00:50 Temperature Pulse Rate 61 49 L 51 L Respiratory Rate 22 21 23 Blood Pressure 139/69 139/60 111/64 Pulse Oximetry 94 94 93 08/09/20 00:56 08/09/20 01:00 08/09/20 01:05 Temperature Pulse Rate 59 L 51 L 56 L Respiratory Rate 22 19 19 Blood Pressure 148/66 H 128/63 144/67 H Pulse Oximetry 93 93 93 08/09/20 01:30 08/09/20 01:31 08/09/20 02:00 Temperature Pulse Rate 54 L 55 L 63 Respiratory Rate 21 19 22 Blood Pressure 146/64 H Pulse Oximetry 94 94 96 08/09/20 02:01 08/09/20 02:30 08/09/20 02:31 Temperature Pulse Rate 61 56 L 58 L Respiratory Rate 23 21 23 Blood Pressure 151/81 H 152/75 H Pulse Oximetry 95 94 93 08/09/20 03:25 Temperature 97.1 F L Pulse Rate 55 L Respiratory Rate 20 Blood Pressure 128/78 Pulse Oximetry 96
--- NOTE | 2020-08-09 06:52 | PC.NURSE ---
Pt exhibiting visible effort to breathe, but denies SOB to this RN, continuous pulse ox shows 88-92% SPO2 on RA. Pt placed on 2L O2 NC for comfort and to decrease effort of breathing- pt reports increased comfort with oxygenation. Discussed administration of IVF w/ provider- provider OKd to leave off fluids d/t being diuresed, BP WNL, presence of peripheral edema, pulmonary edema, & adequate oral intake.
[2020-08-09] MEDS: ASPIRIN EC 325 MG TABLET PO (08:21)
--- NOTE | 2020-08-09 09:17 | P.HP_ITS ---
History of Present Illness History of Present Illness Date Patient Seen: 08/09/20 Time Patient Seen: 08:15 Chief complaint: SOB Narrative: Duane Zamora is a 80 year old male with a past medical history of hypertension, CAD with prior CABG and recent stenting reported 03/2020 who presented with worsening dyspnea on exertion over the past 2 weeks. Patient states that he has not been doing very well since his heart surgery, and has not returned to his previous baseline. However prior to 2 weeks ago he was able to walk a couple of miles without any shortness of breath, since then he has slowly worsened to the point where he was not able to ambulate more than a few feet and he would need to stop about assisted down his driveway to catch his breath. He denies any chest pain, pressure, palpitations, fevers, chills, abdominal pain, early satiety. He does intermittently get a left shoulder pain that briefly goes away when these episodes occur. He does endorse orthopnea as well as mild leg swelling which improved after treatment in the emergency room. The patient reports that over the past few months he has been trying to cut down on the number of medications that he takes. He is currently only on aspirin and metoprolol. In the emergency room, the patient was mildly hypertensive and initially tachycardic into the 170s per ER provider which improved with a single dose of diltiazem. EKG shows a regular tachycardia in the 130s. Laboratory evaluation showed an unremarkable CBC, normal coagulation studies, creatinine of 1.23, only known previous is from March where it was 1.13. Glucose was 140. Troponin was elevated at 0.078, [place] [address]. COVID-19 testing was negative. He was admitted for presumed acute heart failure, possibly tachyarrhythmia induced. Patient History Medical History Hypertension Family & Social History Social History: household members none Prior Living Arrangements Mobile home Safety & Behavioral: Feels Safe in Current Yes Environment Been Physically Hurt or No Threatened By a Person Suicidal Ideation Description None Suicide Plan Description No Plan Tobacco & Substance use: Smoking Status Former smoker alcohol intake never alcohol intake frequency 0-2 drinks per day Substance Use Type does not use Meds Home Medications and Allergies Home Medications Medication Instructions Recorded Confirmed Type aspirin [Adult Aspirin] 81 mg PO DAILY 08/09/20 08/09/20 History metoprolol succinate 25 mg PO DAILY 08/09/20 08/09/20 History Allergies Allergy/AdvReac Type Severity Reaction Status Date / Time No Known Allergies Allergy Verified 03/30/20 10:30 Review of Systems Review of Systems Narrative: All other systems reviewed with the patient and are negative unless otherwise stated. Exam Vital Signs (past 8 hours): - 08/09/20 01:30 08/09/20 01:31 08/09/20 02:00 Temperature Pulse Rate 54 L 55 L 63 Respiratory Rate 21 19 22 Blood Pressure 146/64 H Pulse Oximetry 94 94 96 08/09/20 02:01 08/09/20 02:30 08/09/20 02:31 Temperature Pulse Rate 61 56 L 58 L Respiratory Rate 23 21 23 Blood Pressure 151/81 H 152/75 H Pulse Oximetry 95 94 93 08/09/20 03:25 Temperature 97.1 F L Pulse Rate 55 L Respiratory Rate 20 Blood Pressure 128/78 Pulse Oximetry 96 Oxygen Delivery Method Nasal Cannula Narrative Exam Narrative: GENERAL APPEARANCE: Well developed, well nourished, elderly male in no acute distress. SKIN: Inspection of the skin reveals no rashes, ulcerations or petechiae. HEENT: Normocephalic atraumatic, extraocular muscles are intact, oropharynx is clear and mucous membranes are moist, neck is supple without adenopathy NECK: Supple and symmetric. There was no thyroid enlargement, and no tenderness, or masses were felt. No JVD. CHEST: Normal AP diameter and normal contour without any kyphoscoliosis. LUNGS: Auscultation of the lungs revealed bibasilar crackles without wheezing. CARDIOVASCULAR: There was a regular rate and rhythm without any murmurs, gallops , rubs. Peripheral pulses were 2+ and symmetric. ABDOMEN: Soft and nontender with normal bowel sounds. No ascites was noted. MUSCULOSKELETAL: There was no tenderness or effusions noted. Muscle strength and tone were normal. EXTREMITIES: No cyanosis, clubbing or edema. NEUROLOGIC: Alert and oriented x 3. Normal affect. Gait was normal. Strength is +5/5 in the Upper Extremities and Lower Extremities Bilaterally. Sensation to touch was normal. Objective ECG Impression: Initial EKG shows a regular tachycardia with ST depressions in precordial leads. repeat EKG probably after diltiazem shows a sinus bradycardia still with some ST depressions in precordial leads, significant PVCs. There is no significant change between tracings and these depressions appear consistent with his prior tracings in March. Imaging Chest x-ray: My impression: Increased interstitial predominance, blurring of the left heart border and possible consolidation in the left lower lobe Radiologist's impression: PROCEDURE: XR CHEST 1V INDICATIONS: Shortness of breath TECHNIQUE: One view of the chest was acquired. COMPARISON: [facility], CR, XR CHEST 1V, 03/30/2020, 9:36. FINDINGS: Surgical changes and devices: None. Lungs and pleura: Consolidation noted in the left lung base concerning for aspiration versus pneumonia. There is cephalization of pulmonary vasculature and interstitial prominence concerning for CHF. Mediastinum: Mediastinal contours appear normal. Heart is enlarged.. Bones and chest wall: No suspicious bony lesions. Overlying soft tissues appear unremarkable. IMPRESSION: 1. Focal consolidation left lung base concerning for aspiration versus pneumonia. 2. Probable CHF. Labs Result Diagrams: 08/09/20 00:05 08/09/20 00:05 Labs: Laboratory Results - last 24 hr 08/09/20 08/09/20 08/09/20 00:05 00:05 00:05 WBC 6.9 RBC 5.12 Hgb 15.3 Hct 46.3 MCV 90.5 MCH 29.8 MCHC 33.0 RDW 17.0 H Plt Count 195 Neut % (Auto) 69.7 Lymph % (Auto) 16.3 L [place] % (Auto) 9.7 Eos % (Auto) 2.7 Baso % (Auto) 1.6 Neut # (Auto) 4800 Lymph # (Auto) 1100 [place] # (Auto) 700 Eos # (Auto) 200 Baso # (Auto) 100 PT 13.0 H INR 1.1 Sodium 139 Potassium 4.5 Chloride 108 H Carbon Dioxide 21 L BUN 32 H Creatinine 1.23 Estimated GFR 56.9 L BUN/Creatinine Ratio 26.0 H Glucose 140 H Calcium 9.2 Total Bilirubin 0.8 AST 41 ALT 59 H Alkaline Phosphatase 78 Total Creatine Kinase 80 CK-MB (CK-2) TNP CK-MB (CK-2) Rel Index TNP Troponin I 0.078 H NT-Pro-B Natriuret Pep 93075 H Total Protein 6.9 Albumin 3.7 Globulin 3.2 Albumin/Globulin Ratio 1.2 Lipase 44 SARS-CoV-2 (PCR) 04/01/21 04/01/21 02:00 03:48 WBC RBC Hgb Hct MCV MCH MCHC RDW Plt Count Neut % (Auto) Lymph % (Auto) [place] % (Auto) Eos % (Auto) Baso % (Auto) Neut # (Auto) Lymph # (Auto) [place] # (Auto) Eos # (Auto) Baso # (Auto) PT INR Sodium Potassium Chloride Carbon Dioxide BUN Creatinine Estimated GFR BUN/Creatinine Ratio Glucose Calcium Total Bilirubin AST ALT Alkaline Phosphatase Total Creatine Kinase CK-MB (CK-2) CK-MB (CK-2) Rel Index Troponin I 0.105 H NT-Pro-B Natriuret Pep Total Protein Albumin Globulin Albumin/Globulin Ratio Lipase SARS-CoV-2 (PCR) Negative Assessment & Plan Assessment & Plan narrative: Duane Zamora is a 80 year old male with a past medical history of hypertension, CAD with prior CABG and recent stenting reported 03/2020 who presented with worsening dyspnea on exertion over the past 2 weeks. He was admitted for presumed acute heart failure, possibly tachya rrhythmia induced. 1. Acute heart failure, unknown if systolic or diastolic, present on admission -patient presented with significant dyspnea on exertion, improved rapidly with control of his blood pressure, rate, and slight diuresis. -will give another dose of 40 mg of Lasix, obtain echocardiogram -patient after receiving his dose of Lasix was able to ambulate in the hallway and appeared comfortable, if he continues to improve he could potentially go home later today. 2. CAD, chronic -continue home aspirin and metoprolol 3. Hypertension, chronic -continue home metoprolol 4. Tachyarrhythmia, improved -rates as high as 170 were noted in the emergency room, EKG shows a regular tachycardia not consistent with atrial fibrillation. Telemetry shows a sinus bradycardia currently with frequent PVCs. Will continue to monitor for evidence of atrial fibrillation, but at this time definitive diagnosis has not been made. -will continue home metoprolol and telemetry 5. Elevated troponin, acute , present on admission - mild elevation of troponin, will continue to monitor suspect in the setting of tachyarrythmia in the ER. Code: DNR, surrogate decision maker is the patient's daughter. DVT: Lovenox daily Dispo: admit under observation, possible discharge home later today. COVID-19 COVID-19 status: Negative Quality VTE Deep Vein Thrombosis/Pulmonary Embolism Present on Admission: No
--- NOTE | 2020-08-09 10:08 | CM.DANOTE ---
DCP: Case received, EMR reviewed and met with patient. Introduced self and role. Was able to obtain information from patient regarding his baseline activity status prior to hospitalization, as well as his current living situation. DCP assessment completed with information currently available. Patient is a 80 year old male who admitted early this morningto the care of the hospitalist team. PCP: Dr. Claros. Payer: confirmed: Medicare/[employer]. Patient came to the hospital via private vehicle secondary to having increased shortness of breath. Patient has cardiac history, recently had been at [place] for cardiac stent placement. Patient holds current diagnosis of acute CHF/Pulmonary Edema, and is being diuresed. He is also getting his medications stabilized. Met with patient in his room. He is alert and oriented. Confirmed that he resides alone outside of [place]. His daughter, Samia Zamora, is his daughter that resides in [place]. He also had a daughter named Janie, that lives out of town. He mentioned that Samia is POA. Patient drives, is independent. He does his own gardening. His challenge, he can't walk long distances because he gets short of breath. P: DCP to continue to follow. Patient should be able to go home when he is medically stable. Kaylan Reeder, RN/Extrusion Operator
--- NOTE | 2020-08-09 10:49 | DIET.PN ---
Dietary Progress Note Assessment: 80y M admitted for SOB referred to nutrition for difficulty eating secondary to SOB. Upon arrival pt unable to walk more than 10ft and could only speak one to two words at a time. Per hospitalist, pt likely not fully compliant c medical management of CHF. Pt received one dose of lasix resulting in urine output of 1800cc. Pt SOB resolved, able to speak full sentences and walk hallways of unit. Pt to be d/c on lasix.
[2020-08-09 12:32] LABS: Troponin I 0.131 ng/mL (0.01-0.034)
--- NOTE | 2020-08-09 16:50 | PC.NURSE ---
Addendum entered by Prerna Mera R.N. 08/09/20 22:00: 1930 Troponin value came back at 0.119--still elevated, but decreased compared to most recent. Hospitalist informed. Original Note: Report received, care assumed 1530. Pt. A&Ox3. Sinus emma with PVC's; otherwise VSS. Denies pain. Able to move about room independently, but does score as a fall risk d/t slipping on the ice in May. Bed alarm set, pt. instructed to call for help OOB. Received call from telemetry approximately 1645. Tele read idioventricular rhythm, then flipped to AFib with RVR rate 129. Checked on pt., who feels his heart is racing. BP 158/94. Heart rate quickly resolved to 60. Dr. Elizabeth called, order for Metoprolol received.
[2020-08-09] MEDS: METOPROLOL ER 25 MG TABLET PO (17:23)
[2020-08-09 20:02] LABS: Troponin I 0.119 ng/mL (0.01-0.034)
[2020-08-10] VITALS: O2SAT 93
[2020-08-10 01:00] VITALS: BP 149/57; PULSE 54; RESP 20; TEMP 36.6; O2SAT 93
[2020-08-10 04:00] VITALS: O2SAT 95
[2020-08-10 06:35] LABS: Alanine Aminotransferase 50 IU/L (<50); Albumin 3.3 g/dL (3.5-5.0); Albumin Globulin Ratio 1.2 (1.0-2.8); Alkaline Phosphatase 69 U/L (38-126); Aspartate Aminotransferase 27 IU/L (17-59); BUN Creatinine Ratio 25.6 (6-22); Blood Urea Nitrogen 33 mg/dL (9-20); Calcium 8.9 mg/dL (8.4-10.2); Carbon Dioxide 30 mmol/L (22-32); Chloride 105 mmol/L (98-107); Estimated Glomerular Filt Rate 53.9 mL/min (>60); Globulin 2.7 g/dL (1.7-4.1); Glucose 88 mg/dL (80-110); HEMOLYSIS < 15 (0-50); Potassium 4.2 mmol/L (3.4-5.1); Sodium 139 mmol/L (137-145)
[2020-08-10 08:00] VITALS: BP 145/63; PULSE 59; RESP 16; TEMP 36.5; O2SAT 93; O2SAT 94
--- NOTE | 2020-08-10 08:53 | P.DS_ITS ---
History of Present Illness History of Present Illness Date Patient Seen: 08/10/20 Time Patient Seen: 08:53 Chief complaint: SOB Narrative: Duane Zamora is a 80 year old male with a past medical history of hypertension, CAD with prior CABG and recent stenting reported 03/2020 who presented with worsening dyspnea on exertion over the past 2 weeks. Patient states that he has not been doing very well since his heart surgery, and has not returned to his previous baseline. However prior to 2 weeks ago he was able to walk a couple of miles without any shortness of breath, since then he has slowly worsened to the point where he was not able to ambulate more than a few feet and he would need to stop about long term down his driveway to catch his breath. He denies any chest pain, pressure, palpitations, fevers, chills, abdominal pain, early satiety. He does intermittently get a left shoulder pain that briefly goes away when these episodes occur. He does endorse orthopnea as well as mild leg swelling which improved after treatment in the emergency room. The patient reports that over the past few months he has been trying to cut down on the number of medications that he takes. He is currently only on aspirin and metoprolol. In the emergency room, the patient was mildly hypertensive and initially tachycardic into the 170s per ER provider which improved with a single dose of diltiazem. EKG shows a regular tachycardia in the 130s. Laboratory evaluation showed an unremarkable CBC, normal coagulation studies, creatinine of 1.23, only known previous is from March where it was 1.13. Glucose was 140. Troponin was elevated at 0.078, [place] [address]. COVID-19 testing was negative. He was admitted for presumed acute heart failure, possibly tachyarrhythmia induced. Discharge Providers Provider Date of admission: 08/09/20 02:12 Discharge Date: 08/10/20 Primary care physician: Rene Claros MD Consults: 08/09/20 03:35 Consult to Dietitian, Adult Routine Comment: Reason For Exam: pt reports skipping multiple meals d/t fatigue Discharge provider: Alcon Elizabeth DO Summary Hospital Course Discharge Diagnosis: Please see hospital course by problem list noted below. Hospital Course: Duane Zamora is a 80 year old male with a past medical history of hypertension, CAD with prior CABG and recent stenting reported 03/2020 who presented with worsening dyspnea on exertion over the past 2 weeks. He was admitted for presumed acute heart failure, possibly tachyarrhythmia induced. He improved very quickly with initiation of diuretics. It initially was not known if the patient was in atrial fibrillation initially, however over the course of his admission, telemetry revealed multiple episodes of atrial fibrillation and intermittent tachycardia. However he was predominantly in a sinus bradycardic rate/rhythm. The etiology of his significant decline in heart function with an EF now showing between 10-15% is unclear, however this is possibly tachyarrhythmia induced. His symptoms had largely resolved with initiation of medications and these were explained to him. He should continue on medications and follow-up with his mathematical statistician, presumably for repeat echocardiogram in the next few months. 1. Acute heart failure, systolic, present on admission -patient presented with significant dyspnea on exertion, improved rapidly with control of his blood pressure, rate, and slight diuresis. -given two doses of IV lasix, 40 mg with resolution of symptoms. Echocardiogram showing EF of 10-15%, suspect this may be somewhat reduced given tachyarrythmia / afib on admission. -Patient will be discharged on 40 mg of oral Lasix daily as he did appear euvolemic upon the day of discharge. This may need to be adjusted with his primary care provider or mathematical statistician as an outpatient. -Patient was already on beta wolf therapy, lisinopril was additionally added prior to discharge at low dosing, 5 mg daily. 2. CAD, chronic -continued home aspirin and metoprolol. 3. Hypertension, chronic -continue home metoprolol 4. Paroxysmal atrial fibrillation with RVR, resolved -rates as high as 170 were noted in the emergency room, EKG shows a regular tachycardia not consistent with atrial fibrillation. Telemetry shows predominantly sinus bradycardia currently with frequent PVCs, however he did develop episodes of rapid and slow atrial fibrillation during his admission. Recommending continuing metoprolol and outpatient follow up with cardiology. 5. Elevated troponin, acute , present on admission - mild elevation of troponin which downtrended quickly. Suspect in the setting of tachyarrythmia/afib with RVR in the ER and known CAD. Code: DNR, surrogate decision maker is the patient's daughter. Exam Vital Signs (past 8 hours): - 08/10/20 01:00 08/10/20 04:00 08/10/20 08:00 Temperature 97.8 F 97.7 F Pulse Rate 54 L 59 L Respiratory Rate 20 16 Blood Pressure 149/57 H 145/63 H Pulse Oximetry 93 95 94 Oxygen Delivery Method Room Air Oxygen Flow Rate 0 Narrative Exam Narrative: GENERAL APPEARANCE: Well developed, well nourished, elderly male in no acute distress. SKIN: Inspection of the skin reveals no rashes, ulcerations or petechiae. HEENT: Normocephalic atraumatic, extraocular muscles are intact, oropharynx is clear and mucous membranes are moist, neck is supple without adenopathy NECK: Supple and symmetric. There was no thyroid enlargement, and no tenderness, or masses were felt. No JVD. CHEST: Normal AP diameter and normal contour without any kyphoscoliosis. LUNGS: Auscultation of the lungs revealed bibasilar crackles without wheezing. CARDIOVASCULAR: There was a regular rate and rhythm without any murmurs, gallops, rubs. Peripheral pulses were 2+ and symmetric. ABDOMEN: Soft and nontender with normal bowel sounds. No ascites was noted. MUSCULOSKELETAL: There was no tenderness or effusions noted. Muscle strength and tone were normal. EXTREMITIES: No cyanosis, clubbing or edema. NEUROLOGIC: Alert and oriented x 3. Normal affect. Gait was normal. Strength is +5/5 in the Upper Extremities and Lower Extremities Bilaterally. Sensation to touch was normal. Objective Labs Result Diagrams: 08/09/20 00:05 08/10/20 06:10 Labs: Laboratory Results - last 24 hr 08/09/20 08/09/20 08/10/20 11:32 19:26 06:10 Sodium 139 Potassium 4.2 Chloride 105 Carbon Dioxide 30 BUN 33 H Creatinine 1.29 H Estimated GFR 53.9 L BUN/Creatinine Ratio 25.6 H Glucose 88 Calcium 8.9 Total Bilirubin 1.0 AST 27 ALT 50 H Alkaline Phosphatase 69 Troponin I 0.131 H* 0.119 H Total Protein 6.0 L Albumin 3.3 L Globulin 2.7 Albumin/Globulin Ratio 1.2 [facility] Medical History Hypertension Social History household members: none Smoking Status: Former smoker alcohol intake: never Discharge Plan Discharge Plan Patient Disposition: Home Provider Discharge Comment: You were admitted to the hospital with shortness of breath. You improved very quickly with a medicine to remove excess water. You'll continue this at home. Your EF for your heart was between 10-15%. This may be due to the atrial fibrillation that was also found. For now you should continue on medications to see if this improves over time given your symptoms did significantly improve. You wanted to wait to discuss starting a blood thinner with your PCP and mathematical statistician. Discharge orders & Medications Prescriptions: New furosemide 40 mg Tablet 40 mg PO DAILY 30 Days Qty: 30 RF: 0 lisinopril 5 mg Tablet 5 mg PO DAILY 30 Days Qty: 30 RF: 0 Continued metoprolol succinate 25 mg Tablet Extended Release 24 Hr 25 mg PO DAILY RF: 0 aspirin 81 mg Tablet 81 mg PO DAILY RF: 0 Follow up/Referrals: Rene Claros MD [Primary Care Provider] - Diet/Activity/Treatments Diet: Diet as Tolerated Activity: As tolerated Visit Report/Discharge Packet Instructions: DI for Prescription Opioid Use Discharge Data Primary Care Provider: Rene Claros Attending Provider: Cheli Hook VTE Deep Vein Thrombosis/Pulmonary Embolism Present on Admission: No
[2020-08-10 09:06] VITALS: BP 145/63; PULSE 59
[2020-08-10] MEDS: ASPIRIN EC 81 MG TABLET PO (09:06)
[2020-08-10] MEDS: lisinopriL 5 MG TABLET PO (09:06)
[2020-08-10] MEDS: METOPROLOL ER 25 MG TABLET PO (09:06)
[2020-08-10] MEDS: FUROSEMIDE 40 MG TABLET PO (09:07)
--- NOTE | 2020-08-10 09:40 | PC.NURSE ---
Addendum entered by Hank Hernandez R.N. 08/10/20 10:52: IV d/c'd without issue. Pt dressed belongings from pharmacy and safe returned to Pt. Pt escorted out via w/c. to private car. Original Note: Pt alert and oriented, offers no overt c/o other than wondering where b'fast is. I've been hungry since 06. Pt up independent in room. Pt stating he is going home. said I was. D/c orders noted Pt dressed and ready to go. Going over d/c instructions soon. Pharmacy and belongings retrieved for Pt. Pt has made call to get picked up and is ready shortly.
== END 2020-08-10 10:10 | disposition home or self-care (01) ==
LOC: ED 08-09 02:12 → AC 08-09 02:15
PROVIDERS: Internal Medicine; Admitting Provider Nurse Practitioner Family; Emergency Provider Emergency Medicine; Family Provider Family Medicine; PCP Family Medicine; Referring Provider Emergency Medicine; Visit Provider Nurse Practitioner Family
DX: I50.21 Acute systolic (congestive) heart failure (principal); I48.0 Paroxysmal atrial fibrillation; R77.8 Other specified abnormalities of plasma proteins; I10 Essential (primary) hypertension; I25.10 Atherosclerotic heart disease of native coronary artery without angina pectoris; Z95.1 Presence of aortocoronary bypass graft; Z20.822 Contact with and (suspected) exposure to COVID-19
CPT/HCPCS: 36415; 71045; 80053; 82550; 83690; 83880; 84484; 85025; 85610; 87635; 93005; 93306; 96372; 96374; 96375; 96376; 99284; 99285; G0378; J1650; J1940

== ENCOUNTER 2020-10-08 00:36 | Observation (INO) | payer MEDICARE, SELFPAY ==
[2020-08-09 03:08] VITALS: BMI 22.6
[2020-10-08] VITALS (33 sets, daily range): BP systolic 98–159; BP diastolic 51–77; PULSE 56–138; RESP 16–28; TEMP 35.8–36.9; O2SAT 88–98; BMI 20.7
--- NOTE | 2020-10-08 00:51 | DI.RAD.S_ITS ---
PROCEDURE: XR CHEST 1V INDICATIONS: short of breath TECHNIQUE: One view of the chest was acquired. COMPARISON: [facility], CT, CT ANGIO CHEST ABDOMEN PELVIS, 03/30/2020, 10:39. [facility], CR, XR CHEST 1V, 03/30/2020, 9:36. [facility], CR, XR CHEST 1V, 08/09/2020, 0:10. FINDINGS: Surgical changes and devices: None. Lungs and pleura: There is a small left-sided pleural effusion and a trace right-sided pleural effusion. Generalized interstitial prominence is seen. Dependent consolidations can be seen, left worse than right. No pneumothorax is seen. There is a skin fold seen on the left, which simulates a pneumothorax, however. Mediastinum: The cardiac contours are within normal limits. The aorta demonstrates calcification and tortuosity. Bones and chest wall: No suspicious bony lesions. Age-appropriate bony degenerative changes are seen. Overlying soft tissues appear unremarkable. IMPRESSION: Pleural effusions and interstitial prominence. Fluid overload is suspected. Overlying dependent consolidations can be seen, which are most likely related to atelectasis. Differential diagnosis includes infectious consolidation, however. Followup chest radiographs are recommended to complete resolution. If this abnormality does not completely resolve on plain film, then a chest CT with contrast would be recommended to evaluate for a potential underlying mass. Note: No significant discrepancy from the preliminary report. Dictated by: Mj Linares M.D. on 10/08/2020 at 8:04 Approved by: Mj Linares M.D. on 10/08/2020 at 8:06
--- NOTE | 2020-10-08 00:52 | ED_ITS ---
HPI - SOB/Dyspnea General Chief Complaint: Shortness of Breath/Dyspnea Stated Complaint: SOB Time Seen by Provider: 10/08/20 00:49 Source: patient Mode of arrival: Wheelchair Limitations: no limitations History of Present Illness HPI Narrative: Patient is a 80-year-old male who has a history of coronary artery disease with multiple stents, paroxysmal atrial fibrillation, PVCs presenting with increasing shortness of breath. He states that for the last 1 month he is needed to sleep in a recliner which is abnormal for him. He has significant shortness of breath with very minimal exertion. He denies any fever or cough. He does have some nonproductive cough which is chronic does not seem to be any worse. He denies fever or chills. He was actually seen and evaluated here last month for atrial fibrillation and congestive heart failure. He is only taking metoprolol and no longer takes aspirin. Related Data Home Medications Medication Instructions Recorded Confirmed aspirin 81 mg PO DAILY 08/09/20 10/08/20 metoprolol succinate 25 mg PO DAILY 08/09/20 10/08/20 Allergies Allergy/AdvReac Type Severity Reaction Status Date / Time No Known Allergies Allergy Verified 03/30/20 10:30 Review of Systems Review of Systems Narrative: GENERAL: Denies chills, fatigue, malaise, fever, sweats, travel HEENT: Denies sinus pain, ear pain, sore throat, difficulty swallowing, neck pain RESPIRATORY: See HPI CARDIOVASCULAR: Denies chest pain, palpitations, orthopnea, edema GASTROINTESTINAL: Denies nausea, vomiting, abdominal pain, diarrhea, constipation, melena. : Denies dysuria, frequency, incontinence, hematuria, urinary retention, flank pain. MUSCULOSKELETAL: Denies weakness, joint pain, or bony pain SKIN: No rash, no erythema, no pruritus NEUROLOGIC: Denies weakness, dizziness, headache, numbness, change in speech, confusion PSYCHIATRIC: No concerning psychosocial issues. 12 point review of systems is negative except for those stated above and HPI Patient History Medical History (Updated 10/08/20 @ 05:45 by RUI Singer) Atrial fibrillation, new onset CHF (congestive heart failure) Coronary artery disease History of prostate cancer Hypertension Surgical History (Updated 10/08/20 @ 05:45 by RUI Singer) History of coronary artery bypass graft History of prostatectomy Family History (Updated 10/08/20 @ 05:46 by Cheli Hook, [facility], [place]) Father Emphysema lung Prostate cancer Mother Breast cancer Dementia Social History household members: none Smoking Status: Former smoker alcohol intake: never Smoking Status: Former smoker alcohol intake frequency: 0-2 drinks per day Substance Use Type: does not use Exam Initial Vital Signs Initial Vital Signs: Vital Signs Pulse Rate 87 10/08/20 00:40 GENERAL: Alert 80-year-old male appears in mild respiratory distress HEENT: Head atraumatic,EOMI, pupils reactive, face symmetric, moist mucous membranes CARDIOVASCULAR: Regular rate and rhythm without murmurs, rubs or gallops. RESPIRATORY: Breath sounds equal bilaterally, no wheezes rales or rhonchi. Obvious conversational dyspnea ABDOMEN: Soft, nontender. Normoactive bowel sounds all 4 quadrants. No guarding or rebound. EXTREMITIES: Normal range of motion, no clubbing or edema. Neurovascularly intact NEUROLOGICAL: Alert and oriented x4.Normal gait and speech. SKIN: Warm, dry, no laceration, no petechiae, no rashes or lesions. Course Orders Ordered: ED Orders 10/08/20 EKG-12 Lead Stat 10/08/20 00:50 Consult to Respiratory Therapy Evaluate & Treat Complete Blood Count AUTO DIFF Stat Comprehensive Metabolic Panel Stat D Dimer Stat Lactate (Lactic Acid) Stat Magnesium Stat NT-proBNP (BNP-Adult 18+) Stat Partial Thromboplastin Time Stat Procalcitonin Stat Prothrombin Time INR Stat Troponin & CK Cardiac Panel Stat EKG-12 Lead Stat 10/08/20 00:51 XR chest 1V Stat 10/08/20 01:18 Blood Culture Stat 10/08/20 03:10 Troponin I Stat Acetaminophen (Acetaminophen 325 Mg Tablet) 650 mg PO Q6HR PRN PRN Reason: Fever/Mild Pain (1-3) Al Hydrox/Mg Hydrox/Simethicone (Mag Hydrox/Alum/Simeth 30 Ml Udc) 30 ml PO Q6HR PRN PRN Reason: Dyspepsia Aspirin (Aspirin 81 Mg Chew Tab) 81 mg PO DAILY [facility] Docusate Sodium (Docusate 100 Mg Capsule) 100 mg PO BID [facility] Enoxaparin Sodium (Enoxaparin 40 Mg/0.4 Ml Syringe) 40 mg SUBCUT DAILY [facility] Sodium Chloride (Normal Saline 0.9%) 500 mls @ 40 mls/hr IV CONT [facility] Metoprolol Succinate (Metoprolol Er 25 Mg Tablet) 25 mg PO DAILY [facility] Naloxone HCl (Naloxone 0.4 Mg/Ml Vial) 0.2 mg IV Q2MIN PRN PRN Reason: Opiate Reversal Ondansetron HCl (Ondansetron 4 Mg Odt) 4 mg PO Q8HR PRN PRN Reason: Nausea And Vomiting Oxycodone HCl (Oxycodone Ir 5 Mg Tablet) 5 mg PO Q6HR PRN PRN Reason: Pain, Moderate (4-6) Sennosides (Sennosides 8.6 Mg Tablet) 17.2 mg PO BEDTIME [facility] Discontinued Medications Furosemide (Furosemide 40 Mg/4 Ml Vial) 40 mg IV NOW ONE Stop: 10/08/20 01:30 Last Admin: 10/08/20 01:39 Dose: 40 mg Documented by: ROBERT Metoprolol Tartrate (Metoprolol Ir 25 Mg Tablet) 25 mg PO NOW ONE Stop: 10/08/20 05:56 Vital Signs Vital signs: Vital Signs - 8 hr 10/08/20 00:40 10/08/20 00:44 10/08/20 00:54 Temperature 98.3 F Pulse Rate 87 89 68 Respiratory Rate 24 Blood Pressure 148/75 H Pulse Oximetry 93 95 10/08/20 00:55 10/08/20 01:00 10/08/20 01:03 Temperature Pulse Rate 66 69 Respiratory Rate 25 H Blood Pressure 148/75 H 159/76 H Pulse Oximetry 94 95 10/08/20 01:30 10/08/20 01:31 10/08/20 02:00 Temperature Pulse Rate 65 64 72 Respiratory Rate 23 24 22 Blood Pressure 144/77 H Pulse Oximetry 94 95 95 10/08/20 02:30 10/08/20 03:00 10/08/20 03:30 Temperature Pulse Rate 63 64 63 Respiratory Rate 26 H 28 H 26 H Blood Pressure Pulse Oximetry 96 94 94 10/08/20 03:38 10/08/20 04:00 10/08/20 04:01 Temperature Pulse Rate 63 68 94 H Respiratory Rate 23 25 H 20 Blood Pressure 123/73 Pulse Oximetry 93 94 88 L MDM - SOB/Dyspnea Lab Data Attestation: I reviewed the patient's lab results. Result diagrams: 10/08/20 00:50 10/08/20 00:50 Labs: Lab Results 10/08/20 10/08/20 10/08/20 Range/Units 00:50 00:50 00:50 WBC 7.9 (4.5-11.0) X10^3/uL RBC 5.07 (4.5-5.9) X10^6/uL Hgb 15.2 (13.5-17.5) g/dL Hct 45.1 (41-53) % MCV 88.9 (80-100) fL MCH 29.9 (26-34) PG MCHC 33.6 (30-36) % RDW 15.0 H (11.6-14.8) % Plt Count 186 (150-400) X10^3/uL Neut % (Auto) 76.7 H (50-75) % Lymph % (Auto) 12.9 L (25-40) % [place] % (Auto) 8.2 (3-14) % Eos % (Auto) 1.5 L (2-4) % Baso % (Auto) 0.7 (0-2) % Neut # (Auto) 6000 (3280-5912) /uL Lymph # (Auto) 1000 L (9333-6373) /uL [place] # (Auto) 600 (0-900) /uL Eos # (Auto) 100 (0-450) /uL Baso # (Auto) 100 (0-100) /uL PT 13.0 H (10.1-12.7) SECONDS INR 1.2 (0.9-1.3) APTT 33 (26.4-36.2) SECONDS D-Dimer (<230) ng/mL Sodium (137-145) mmol/L Potassium (3.4-5.1) mmol/L Chloride (98-107) mmol/L Carbon Dioxide (22-32) mmol/L BUN (9-20) mg/dL Creatinine (0.66-1.25) mg/dL Estimated GFR (>60) mL/min BUN/Creatinine Ratio (6-22) Glucose (80-110) mg/dL Lactate (0.7-2.1) mmol/L Calcium (8.4-10.2) mg/dL Magnesium (1.6-2.3) mg/dL Total Bilirubin (0.2-1.3) mg/dL AST (17-59) IU/L ALT (<50) IU/L Alkaline Phosphatase (38-126) U/L Total Creatine Kinase (55-170) U/L CK-MB (CK-2) CK-MB (CK-2) Rel Index Troponin I (0.01-0.034) ng/mL NT-Pro-B Natriuret Pep 10647 H (<450) pg/mL Total Protein (6.3-8.2) g/dL Albumin (3.5-5.0) g/dL Globulin (1.7-4.1) g/dL Albumin/Globulin Ratio (1.0-2.8) Procalcitonin 0.19 (<0.5) ng/mL 10/08/20 10/08/20 10/08/20 Range/Units 00:50 00:50 00:50 WBC (4.5-11.0) X10^3/uL RBC (4.5-5.9) X10^6/uL Hgb (13.5-17.5) g/dL Hct (41-53) % MCV (80-100) fL MCH (26-34) PG MCHC (30-36) % RDW (11.6-14.8) % Plt Count (150-400) X10^3/uL Neut % (Auto) (50-75) % Lymph % (Auto) (25-40) % [place] % (Auto) (3-14) % Eos % (Auto) (2-4) % Baso % (Auto) (0-2) % Neut # (Auto) (9548-4677) /uL Lymph # (Auto) (2423-5172) /uL [place] # (Auto) (0-900) /uL Eos # (Auto) (0-450) /uL Baso # (Auto) (0-100) /uL PT (10.1-12.7) SECONDS INR (0.9-1.3) APTT (26.4-36.2) SECONDS D-Dimer 399 H (<230) ng/mL Sodium 139 (137-145) mmol/L Potassium 4.2 (3.4-5.1) mmol/L Chloride 105 (98-107) mmol/L Carbon Dioxide 24 (22-32) mmol/L BUN 28 H (9-20) mg/dL Creatinine 1.49 H (0.66-1.25) mg/dL Estimated GFR 45.6 L (>60) mL/min BUN/Creatinine Ratio 18.8 (6-22) Glucose 139 H (80-110) mg/dL Lactate 1.5 (0.7-2.1) mmol/L Calcium 9.5 (8.4-10.2) mg/dL Magnesium 2.1 (1.6-2.3) mg/dL Total Bilirubin 0.8 (0.2-1.3) mg/dL AST 32 (17-59) IU/L ALT 42 (<50) IU/L Alkaline Phosphatase 90 (38-126) U/L Total Creatine Kinase 54 L (55-170) U/L CK-MB (CK-2) TNP CK-MB (CK-2) Rel Index TNP Troponin I 0.092 H (0.01-0.034) ng/mL NT-Pro-B Natriuret Pep (<450) pg/mL Total Protein 7.5 (6.3-8.2) g/dL Albumin 4.1 (3.5-5.0) g/dL Globulin 3.4 (1.7-4.1) g/dL Albumin/Globulin Ratio 1.2 (1.0-2.8) Procalcitonin (<0.5) ng/mL 10/08/20 Range/Units 03:10 WBC (4.5-11.0) X10^3/uL RBC (4.5-5.9) X10^6/uL Hgb (13.5-17.5) g/dL Hct (41-53) % MCV (80-100) fL MCH (26-34) PG MCHC (30-36) % RDW (11.6-14.8) % Plt Count (150-400) X10^3/uL Neut % (Auto) (50-75) % Lymph % (Auto) (25-40) % [place] % (Auto) (3-14) % Eos % (Auto) (2-4) % Baso % (Auto) (0-2) % Neut # (Auto) (1594-5919) /uL Lymph # (Auto) (5398-2010) /uL [place] # (Auto) (0-900) /uL Eos # (Auto) (0-450) /uL Baso # (Auto) (0-100) /uL PT (10.1-12.7) SECONDS INR (0.9-1.3) APTT (26.4-36.2) SECONDS D-Dimer (<230) ng/mL Sodium (137-145) mmol/L Potassium (3.4-5.1) mmol/L Chloride (98-107) mmol/L Carbon Dioxide (22-32) mmol/L BUN (9-20) mg/dL Creatinine (0.66-1.25) mg/dL Estimated GFR (>60) mL/min BUN/Creatinine Ratio (6-22) Glucose (80-110) mg/dL Lactate (0.7-2.1) mmol/L Calcium (8.4-10.2) mg/dL Magnesium (1.6-2.3) mg/dL Total Bilirubin (0.2-1.3) mg/dL AST (17-59) IU/L ALT (<50) IU/L Alkaline Phosphatase (38-126) U/L Total Creatine Kinase (55-170) U/L CK-MB (CK-2) CK-MB (CK-2) Rel Index Troponin I 0.108 H (0.01-0.034) ng/mL NT-Pro-B Natriuret Pep (<450) pg/mL Total Protein (6.3-8.2) g/dL Albumin (3.5-5.0) g/dL Globulin (1.7-4.1) g/dL Albumin/Globulin Ratio (1.0-2.8) Procalcitonin (<0.5) ng/mL Urine Dip Bedside Urine Glucose Negative Bedside Urine Bilirubin - Negative Bedside Urine Ketone - Negative Urine Specific [place] 1.020 Bedside Urine Occult Blood - Negative Bedside Urine pH 6.0 Bedside Urine Protein - Negative Bedside Urine Urobilinogen - Negative Bedside Urine Nitrite - Negative Bedside Urine Leukocytes - Negative Esterase Imaging Data Chest x-ray: Radiologist's Impression: Preliminary report bibasilar consolidation with left effusion follow-up to clearing recommended ECG Data Attestation: I personally reviewed and interpreted this ECG as follows: Prior ECG tracings: available for review Interpretation: Sinus rhythm heart rate 77 frequent PVCs noted Repeat EKG shows a normal sinus rhythm rate 61 p.r. interval 162 QRS [address] changes no T-wave inversions in V5 and V6 significantly improved from prior EKGs MDM Narrative Medical decision making narrative: The patient had echocardiogram last month which showed an EF of 15-20% is. It is noted that he was discharged home on Lasix and lisinopril in addition to his metoprolol. He states that he is only taking metoprolol in the his primary care provider to come off the other medications. He states when he had his stents placed he was put on 5 medications but he had a reaction to every single 1 of them except the metoprolol so he takes that an aspirin only. He is unsure [place] [address] the highest it has been. He has positive orthopnea with shortness of breath with exertion consistent with congestive heart failure. Procalcitonin elevated however he has no fever chills or leukocytosis or productive cough at this time do not think he has pneumonia. Although chest x- ray does have some patchy infiltrates. D-dimer is 399 which is negative if you age corrected signs and symptoms are more consistent with congestive heart failure. He responds well to 40 mg of Lasix he has urinated quite a bit. Repeat troponin is slightly more elevated from 0.092 to 0.10. No EKG changes Ambulation trial the patient's oxygen dropped to 88% and he was dyspneic. It did resolve soon as he sat down on the bed. He has no chest pain I have discussed with him the importance of taking medication as it is prescribed. He states he is not sure why he was taken off of it of course that he will take it. I do question some of his cognitive ability. Patient does require oxygen with ambulation decreased O2 to 88% held elevation of troponin. Patient will need observation [facility] accepts patient Discharge Plan Departure Patient Disposition: Admitted as Observation Clinical Impression: CHF (congestive heart failure) Admit Date/Time: 10/08/20 04:16 Admit Provider: Cheli Hook
--- NOTE | 2020-10-08 01:02 | RT ---
Assessed pt at 0059. Pt is here in ED for SOB. Pt is on RA, SpO2 94%-96%, RR 24, BS clear t/o. Pt is a former smoker and is unclear if they have COPD. Pt does not take any respiratory medications at home, does not use CPAP\BiPAP at home, and does not use O2 at home. Extremities are not swollen. Recommending O2 therapy as needed.
[2020-10-08 01:03] LABS: Add Manual Diff / Slide Review NO; Basophils Absolute Auto 100 /uL (0-100); Basophils Percent Auto 0.7 % (0-2); Eosinophils Absolute Auto 100 /uL (0-450); Eosinophils Percent Auto 1.5 % (2-4); Hematocrit 45.1 % (41-53); Hemoglobin 15.2 g/dL (13.5-17.5); INR 1.2 (0.9-1.3); Lymphocytes Absolute Auto 1000 /uL (1100-4500); Lymphocytes Percent Auto 12.9 % (25-40); Mean Corpuscular HGB Conc 33.6 % (30-36); Mean Corpuscular Hemoglobin 29.9 PG (26-34); Mean Corpuscular Volume 88.9 fL (80-100); Monocytes Absolute Auto 600 /uL (0-900); Monocytes Percent Auto 8.2 % (3-14); Neutrophils Absolute Auto 6000 /uL (1500-7000); Neutrophils Percent Auto 76.7 % (50-75); Platelet Count 186 X10^3/uL (150-400); Red Blood Cell Count 5.07 X10^6/uL (4.5-5.9); White Blood Cell Count 7.9 X10^3/uL (4.5-11.0)
[2020-10-08 01:05] LABS: PTT Partial Thromboplastin Tim 33 SECONDS (26.4-36.2)
[2020-10-08 01:06] LABS: Lactate (Lactic Acid) 1.5 mmol/L (0.7-2.1)
[2020-10-08 01:07] LABS: Alanine Aminotransferase 42 IU/L (<50); Albumin 4.1 g/dL (3.5-5.0); Albumin Globulin Ratio 1.2 (1.0-2.8); Alkaline Phosphatase 90 U/L (38-126); Aspartate Aminotransferase 32 IU/L (17-59); BUN Creatinine Ratio 18.8 (6-22); Bilirubin Total 0.8 mg/dL (0.2-1.3); Blood Urea Nitrogen 28 mg/dL (9-20); Calcium 9.5 mg/dL (8.4-10.2); Carbon Dioxide 24 mmol/L (22-32); Chloride 105 mmol/L (98-107); Creatine Kinase 54 U/L (55-170); Estimated Glomerular Filt Rate 45.6 mL/min (>60); Globulin 3.4 g/dL (1.7-4.1); Glucose 139 mg/dL (80-110); HEMOLYSIS < 15 (0-50); Magnesium 2.1 mg/dL (1.6-2.3); Potassium 4.2 mmol/L (3.4-5.1); Sodium 139 mmol/L (137-145); Total Protein 7.5 g/dL (6.3-8.2)
[2020-10-08 01:14] LABS: D Dimer 399 ng/mL (<230)
[2020-10-08 01:16] LABS: NT-proBNP (BNP-Adult 18+) 29400 pg/mL (<450)
[2020-10-08 01:18] LABS: Troponin I 0.092 ng/mL (0.01-0.034)
[2020-10-08 01:24] LABS: Procalcitonin 0.19 ng/mL (<0.5)
[2020-10-08] MEDS: FUROSEMIDE 40 MG/4 ML VIAL IV (01:39)
[2020-10-08 03:40] LABS: Troponin I 0.108 ng/mL (0.01-0.034)
--- NOTE | 2020-10-08 04:02 | PC.NURSE ---
Patient began walk with 02 at 94% and it slowly dropped until we got back to pt. room with 02 of 88%.
--- NOTE | 2020-10-08 04:30 | P.HP_ITS ---
History of Present Illness History of Present Illness Date Patient Seen: 10/08/20 Time Patient Seen: 04:30 Chief complaint: SOB Narrative: Patient is a 80-year-old male Duane Zamora who presented to the ED with a chief complaint of increasing shortness of breath. He states that for the last 1 month he is needed to sleep in a recliner which is abnormal for him. He has significant shortness of breath with very minimal exertion. He denies any fever or cough. He does have some nonproductive cough which is chronic does not seem to be any worse. He denies fever or chills. He is only taking metoprolol and no longer takes aspirin. He states that his doctor took him off most of the other medications because he was unable to tolerate them. Patient has a past medical history of hypertension, atrial fibrillation, CHF, CAD with prior CABG and recent stenting reported 03/2020. Patient was admitted in August 2020 complaining of similar symptoms, was diagnosed with atrial fibrillation that resolved during hospitalization and acute systolic heart failure per echo 08/09/2020 with an EF 15-20%. While in the ED patient was trialed with ambulation and said to have desatted into the 80s with worsening dyspnea. Dr. Choe did verbalize concerns regarding memory/cognitive issues. Once on the floor patient demonstrated no signs of fluid overload or peripheral edema, patient reported marked improvement in his shortness of breath following the 40 mg of Lasix in the ED. Patient's vitals upon admit temp 98.3?, BP 144/77, HR 94, RR 20, 88% O2 sat. In the ED patient was dyspneic, tachypneic, endorsed orthopnea, and had moments of conversational dyspnea. Labs: Patient CBC was unremarkable, on prior admit patient's initial creatinine was normal, today's creatinine slightly increased from discharge 1.49, BUN 28, glucose 139, EGFR decreased from hospitalization 45.6, D-dimer 399, lactate WNL, Mag WNL, proBNP elevated at 29,400. Troponins demonstrating only a slight increase up 1# 0.092, 2# 0.108.CXR: Preliminary report bibasilar consolidation with left effusion. EKG:Prior ECG tracings: available for review. Sinus rhythm heart rate 77 frequent PVCs noted. Repeat EKG shows a normal sinus rhythm rate 61 p.r. interval 162 QRS [address] changes no T-wave inversions in V5 and V6 significantly improved from prior EKGs. Patient admitted with dyspnea/congestive systolic heart failure exacerbation. Patient History Medical History (Updated 10/08/20 @ 05:45 by RUI Singer) Atrial fibrillation, new onset CHF (congestive heart failure) Coronary artery disease History of prostate cancer Hypertension Surgical History (Updated 10/08/20 @ 05:45 by RUI Singer) History of coronary artery bypass graft History of prostatectomy Family & Social History Family History (Updated 10/08/20 @ 05:46 by RUI Singer) Father Emphysema lung Prostate cancer Mother Breast cancer Dementia Social History: household members patient is retired and lives alone with history much effort, he has a daughter in [place], [place] and another daughter in [place]. Tobacco & Substance use: Smoking Status Former smoker alcohol intake occasionally alcohol intake frequency 0-2 drinks per day Substance Use Type does not use Meds Home Medications and Allergies Home Medications Medication Instructions Recorded Confirmed Type aspirin 81 mg PO DAILY 08/09/20 10/08/20 History metoprolol succinate 25 mg PO DAILY 08/09/20 10/08/20 History Allergies Allergy/AdvReac Type Severity Reaction Status Date / Time No Known Allergies Allergy Verified 03/30/20 10:30 Review of Systems Review of Systems ROS: Yes All systems reviewed with the patient and are negative except as otherwise documented Cardiovascular Cardiovascular: Reports dyspnea and Reports dyspnea on exertion Respiratory Respiratory: Reports pain with cough (to the right side of chest.), Reports dyspnea and Reports dyspnea on exertion Exam Vital Signs (past 8 hours): - 10/08/20 00:40 10/08/20 00:44 10/08/20 00:54 Temperature 98.3 F Pulse Rate 87 89 68 Respiratory Rate 24 Blood Pressure 148/75 H Pulse Oximetry 93 95 10/08/20 00:55 10/08/20 01:00 10/08/20 01:03 Temperature Pulse Rate 66 69 Respiratory Rate 25 H Blood Pressure 148/75 H 159/76 H Pulse Oximetry 94 95 10/08/20 01:30 10/08/20 01:31 10/08/20 02:00 Temperature Pulse Rate 65 64 72 Respiratory Rate 23 24 22 Blood Pressure 144/77 H Pulse Oximetry 94 95 95 10/08/20 02:30 10/08/20 03:00 10/08/20 03:30 Temperature Pulse Rate 63 64 63 Respiratory Rate 26 H 28 H 26 H Blood Pressure Pulse Oximetry 96 94 94 10/08/20 03:38 10/08/20 04:00 10/08/20 04:01 Temperature Pulse Rate 63 68 94 H Respiratory Rate 23 25 H 20 Blood Pressure 123/73 Pulse Oximetry 93 94 88 L Oxygen Delivery Method Room Air Narrative Exam Narrative: General: Patient is a well-developed, well-nourished male with mild conversational dyspnea, though in no distress at this time. HEENT: Normocephalic, atraumatic, extraocular muscles intact, oral pharynx is clear and mucous membranes are moist. Neck is supple and symmetric, trachea is midline, no adenopathy, no thyroid enlargement, nontender, no masses palpated. Negative for JVD Chest: Normal AP diameter and contour without kyphoscoliosis, no nasal flaring, retractions, or tachypneic labored Lungs: Auscultation of all lung woods crackles in bilateral bases. Cardio: regular rate and rhythm without murmur, rubs, or gallops, no carotid bruit, no cardiac pulsations present. Abdomen: Soft nontender, negative for organomegaly, or masses. Bowel sounds are present in all 4 quadrants without guarding or rebound, no CVA tenderness. Musculoskeletal: Muscle strength and tone are equal within normal limits, no deformity, crepitus, effusions, cyanosis, clubbing or edema present. Full range of motion intact radial and pedal pulses are normal. Skin: Warm dry and intact without rashes, ulcerations or petechiae. Neuro: Alert and orientated x3, strength is +5/5 in all extremities, sensation to touch intact, no gross deficits noted of cranial nerves. Psych: Patient has a well-kept appearance, appropriate affect, mental status attitude thought context and judgment are appropriate for age. Objective Labs Result Diagrams: 10/08/20 00:50 10/08/20 00:50 Labs: Laboratory Results - last 24 hr 10/08/20 10/08/20 10/08/20 00:50 00:50 00:50 WBC 7.9 RBC 5.07 Hgb 15.2 Hct 45.1 MCV 88.9 MCH 29.9 MCHC 33.6 RDW 15.0 H Plt Count 186 Neut % (Auto) 76.7 H Lymph % (Auto) 12.9 L [place] % (Auto) 8.2 Eos % (Auto) 1.5 L Baso % (Auto) 0.7 Neut # (Auto) 6000 Lymph # (Auto) 1000 L [place] # (Auto) 600 Eos # (Auto) 100 Baso # (Auto) 100 PT 13.0 H INR 1.2 APTT 33 D-Dimer Sodium Potassium Chloride Carbon Dioxide BUN Creatinine Estimated GFR BUN/Creatinine Ratio Glucose Lactate Calcium Magnesium Total Bilirubin AST ALT Alkaline Phosphatase Total Creatine Kinase CK-MB (CK-2) CK-MB (CK-2) Rel Index Troponin I NT-Pro-B Natriuret Pep 16261 H Total Protein Albumin Globulin Albumin/Globulin Ratio Procalcitonin 0.19 10/08/20 10/08/20 10/08/20 00:50 00:50 00:50 WBC RBC Hgb Hct MCV MCH MCHC RDW Plt Count Neut % (Auto) Lymph % (Auto) [place] % (Auto) Eos % (Auto) Baso % (Auto) Neut # (Auto) Lymph # (Auto) [place] # (Auto) Eos # (Auto) Baso # (Auto) PT INR APTT D-Dimer 399 H Sodium 139 Potassium 4.2 Chloride 105 Carbon Dioxide 24 BUN 28 H Creatinine 1.49 H Estimated GFR 45.6 L BUN/Creatinine Ratio 18.8 Glucose 139 H Lactate 1.5 Calcium 9.5 Magnesium 2.1 Total Bilirubin 0.8 AST 32 ALT 42 Alkaline Phosphatase 90 Total Creatine Kinase 54 L CK-MB (CK-2) TNP CK-MB (CK-2) Rel Index TNP Troponin I 0.092 H NT-Pro-B Natriuret Pep Total Protein 7.5 Albumin 4.1 Globulin 3.4 Albumin/Globulin Ratio 1.2 Procalcitonin 10/08/20 03:10 WBC RBC Hgb Hct MCV MCH MCHC RDW Plt Count Neut % (Auto) Lymph % (Auto) [place] % (Auto) Eos % (Auto) Baso % (Auto) Neut # (Auto) Lymph # (Auto) [place] # (Auto) Eos # (Auto) Baso # (Auto) PT INR APTT D-Dimer Sodium Potassium Chloride Carbon Dioxide BUN Creatinine Estimated GFR BUN/Creatinine Ratio Glucose Lactate Calcium Magnesium Total Bilirubin AST ALT Alkaline Phosphatase Total Creatine Kinase CK-MB (CK-2) CK-MB (CK-2) Rel Index Troponin I 0.108 H NT-Pro-B Natriuret Pep Total Protein Albumin Globulin Albumin/Globulin Ratio Procalcitonin Assessment & Plan Assessment & Plan narrative: This patient requires acute care inpatient hospital observation and management for dyspnea as a result CHF exacerbation, after failing outpatient management. The patient is at much higher risk for medical and surgical complications because of his history of hypertension, atrial fibrillation, CHF, CAD with prior CABG and recent stenting reported 03/2020. These factors increase the difficulty and complexity of medical and surgical interventions and increases the chances of poor outcomes such as morbidity and mortality. Patient's congestive heart failure exacerbation has impacted his oxygenation requiring hospitalization for diuresis. Patient's expected length of stay less than 2 midnights. 1. Congestive systolic heart failure, exacerbation, acute on chronic, present on admission -patient presented with significant dyspnea on exertion-as evidence by desaturation with ambulation in to the 80's% in the ED. Suspect this an exacerbation has occurred because the patient stopped taking his lasix and all other medications -except his metoprolol per his doctors orders. Patient's dyspnea had already begun to improve with the mild diuresis in the ED, the patient was without peripheral edema, and no signs of fluid overload, he looked a bit dry. His worsening shortness of breath is most likely indicative of his reduced ejection fraction from progressing heart failure. -Dr. Choe verbalized concern for memory loss/dementia/cognitive issues-will order mini-mental exam tomorrow for evaluation, though I found the patient competent with a well-organized thought process and insight. -Last Echo 08/09/2020 EF15-20% vitals upon admit temp 98.3?, BP 144/77, HR 94, RR 20, 88% O2 sat. In the ED patient was dyspneic, tachypneic, endorsed orthopnea, and had moments of conversational dyspnea. Labs: Patient CBC was unremarkable, on prior admit patient's initial creatinine was normal, today's creatinine slightly increased from discharge 1.49, BUN 28, glucose 139, EGFR decreased from hospitalization 45.6, D-dimer 399, lactate WNL, Mag WNL, proBNP elevated at 29,400. Troponins demonstrating only a slight increase up 1# 0.092, 2# 0.108.CXR: Preliminary report bibasilar consolidation with left effusion. EKG:Prior ECG tracings: available for review. Sinus rhythm heart rate 77 frequent PVCs noted. Repeat EKG shows a normal sinus rhythm rate 61 p.r. interval 162 QRS [address] changes no T-wave inversions in V5 and V6 significantly improved from prior EKGs. -patient to be monitored on tele medicine, vital signs q.4 hours, intake and output monitored Q shift, weight measure daily, diet:Heart Healthy -patient given 40 mg Lasix in the ED, will restart with 20 mg of Lasix QD- patient appeared respond quickly and easily with mild diuresis on prior visit. 2. CAD, chronic, not present on admission -continue home aspirin and metoprolol 3. Hypertension, essential, acute on chronic, present on admission -as evidence by initial BP of 159/77 -continue home metoprolol, restart lisinopril 5 mg q.day 4 Atrial fibrillation paroxysmal, chronic, not present on admission. -continue patient's metoprolol -patient placed on telemedicine Code status: DNR Surrogate decision maker: daughter Geovani ROMERO PCR: Negative VTE/DVT prophylaxis: Lovenox 40 mg/SCDs Scores GCS [place] coma scale eye opening: Spontaneous [place] coma scale verbal response: Orientated [place] coma scale motor response: Obey commands [place] coma scale total score: 15 CHADS-VASc Congestive heart failure: yes Hypertension: yes Age 75 years or older: yes Diabetes mellitus: no Stroke, TIA, or TE: no Vascular disease: yes Age 65 to 74 years: no Sex category (female): Male CHADS-VASc Score: 5 Wells' Criteria for PE Clinical signs and symptoms of DVT: No PE is #1 Dx or equally likely: No Heart rate > 100: No Immobilization at least 3 days or surg in previous 4 weeks: No History of PE or DVT: No Hemoptysis: No Malignancy w/Treatment within 6 months or palliative: No Wells' PE Score total: 0 Quality MIPS - Admit I confirm the patient?s Advance Care Plan is present, Code status is documented, Surrogate decision maker is in patient?s record [If Yes, STOP here]: Yes
[2020-10-08 05:22] LABS: COVID19 - ADMIT (NP swab/PCR) Negative (Negative)
[2020-10-08 06:01] LABS: INR 1.2 (0.9-1.3); Prothrombin Time 13.3 SECONDS (10.1-12.7)
[2020-10-08 06:08] LABS: BUN Creatinine Ratio 18.6 (6-22); Blood Urea Nitrogen 26 mg/dL (9-20); Calcium 9.6 mg/dL (8.4-10.2); Carbon Dioxide 27 mmol/L (22-32); Chloride 104 mmol/L (98-107); Glucose 105 mg/dL (80-110); HEMOLYSIS < 15 (0-50); Sodium 138 mmol/L (137-145)
[2020-10-08 06:16] LABS: NT-proBNP (BNP-Adult 18+) 31200 pg/mL (<450)
--- NOTE | 2020-10-08 06:21 | PC.NURSE ---
@0555 pt tachycardic in 130s, BP checked RUE: 98/51, BP checked LUE: 90/48. Rechecked BP @ 0609 after HR returned to 60-70 range, RUE 131/95. All findings reported to RN at times of discovery
--- NOTE | 2020-10-08 06:27 | PC.NURSE ---
0455 Admitted from ER, diagnosed with CHF exacerbation. Oreinted to his room showed him how to use his call light, TV & bed controls. Denies any history of fall for the last 3 months. Did not C/O any pain upon admission, but @ 0558 HR. was up to 134 & B/P 98/51. JACKI Hook notified ordered to give Metoprolol & NS @ 40 cc per hour. When we rechecked his B/P 131/95 & HR. 60. JACKI Hook notified ordered to hold Metoprolol & IVF NS. Pt. reported I was doing this before I know when my heart rate is up, I can feel it in my neck. Pt. referring to his carotid artery. Did not C/O chest pain while his heart was elevated to 134-138. Will cont. POC & monitor.
[2020-10-08] MEDS: ENOXAPARIN 40 MG/0.4 ML SYRINGE SUBCUT (08:21)
[2020-10-08] MEDS: FUROSEMIDE 20 MG TABLET PO (08:21)
[2020-10-08] MEDS: ASPIRIN 81 MG CHEW TAB PO (08:21)
[2020-10-08] MEDS: DOCUSATE 100 MG CAPSULE PO ×2 (08:21→21:05)
[2020-10-08 09:38] LABS: Troponin I 0.207 ng/mL (0.01-0.034)
--- NOTE | 2020-10-08 09:43 | CM.MNRNOTE ---
Addendum entered by Isaura Isidro R.N. 10/08/20 10:37: Nurse Note Original Note: Day shift: Dr Elizabeth informed of trop 0.207. Pt made aware that it will be checked again in 6 hrs. Also gave a verbal order for stat EKG at this time. RT informed. Call light in reach. Pt agrees to not get OOB w/o help from staff.
--- NOTE | 2020-10-08 11:45 | PC.NURSE ---
pt with intermittent tachy afib and slow afib rates seen between 48-141 bpm- md aware
[2020-10-08] MEDS: METOPROLOL ER 25 MG TABLET PO (12:13)
--- NOTE | 2020-10-08 15:45 | PC.NURSE ---
Addendum entered by Rosa Fontana R.N. 10/08/20 22:53: Notified JACKI Hook of critical troponin: 0.589, no new orders. Addendum entered by Rosa Fontana R.N. 10/08/20 16:48: Notified Dr Elizabeth of rapid rate, HR: 130 Original Note: Notified Dr Elizabeth of critical troponin: 0.395, no new orders.
[2020-10-08 15:46] LABS: Troponin I 0.395 ng/mL (0.01-0.034)
--- NOTE | 2020-10-08 16:24 | PM.PN.1 ---
Subjective Subjective Interval history: Brief update note. Patient was seen and examined today and agree with the assessment and plan as previously documented. This is a 80-year-old male with a past medical history of systolic heart failure, CAD, hypertension, and paroxysmal atrial fibrillation who presented with worsening shortness of breath. In the emergency room he was noted to be hypoxic with ambulation. Today he was able to ambulate around the nursing station without desaturation and is currently asymptomatic. He does continue to have a rising troponin, now up to 0.395, which may be due to his acute on chronic systolic heart failure and elevated creatinine (? CKD III). Will continue to monitor his troponin, EKGs throughout today have shown no evidence of acute ischemia and the patient is without complaints at this time. He can likely discharge once his troponins are downtrending. 1. Acute on chronic systolic heart failure, present on admission, improved 2. CAD, chronic, not present on admission 3. Hypertension, essential, acute on chronic, present on admission 4 Atrial fibrillation paroxysmal, chronic, not present on admission. 5. Elevated troponin Exam Vital Signs (past 8 hours): - 10/08/20 09:13 10/08/20 11:15 10/08/20 12:02 Temperature 97.4 F L Pulse Rate 122 H Respiratory Rate 16 Blood Pressure 116/75 Pulse Oximetry 95 94 94 10/08/20 12:13 10/08/20 12:37 10/08/20 13:00 Temperature Pulse Rate 138 H 70 Respiratory Rate Blood Pressure Pulse Oximetry 94 10/08/20 15:21 Temperature 98.3 F Pulse Rate 69 Respiratory Rate 18 Blood Pressure 123/77 Pulse Oximetry 96 Oxygen Delivery Method Room Air Oxygen Flow Rate 0 Objective Labs Result Diagrams: 10/08/20 00:50 10/08/20 05:37 Labs: Laboratory Results - last 24 hr 10/08/20 10/08/20 10/08/20 00:50 00:50 00:50 WBC 7.9 RBC 5.07 Hgb 15.2 Hct 45.1 MCV 88.9 MCH 29.9 MCHC 33.6 RDW 15.0 H Plt Count 186 Neut % (Auto) 76.7 H Lymph % (Auto) 12.9 L [place] % (Auto) 8.2 Eos % (Auto) 1.5 L Baso % (Auto) 0.7 Neut # (Auto) 6000 Lymph # (Auto) 1000 L [place] # (Auto) 600 Eos # (Auto) 100 Baso # (Auto) 100 PT 13.0 H INR 1.2 APTT 33 D-Dimer Sodium Potassium Chloride Carbon Dioxide BUN Creatinine Estimated GFR BUN/Creatinine Ratio Glucose Lactate Calcium Magnesium Total Bilirubin AST ALT Alkaline Phosphatase Total Creatine Kinase CK-MB (CK-2) CK-MB (CK-2) Rel Index Troponin I NT-Pro-B Natriuret Pep 43745 H Total Protein Albumin Globulin Albumin/Globulin Ratio Procalcitonin 0.19 SARS-CoV-2 (PCR) 10/08/20 10/08/20 10/08/20 00:50 00:50 00:50 WBC RBC Hgb Hct MCV MCH MCHC RDW Plt Count Neut % (Auto) Lymph % (Auto) [place] % (Auto) Eos % (Auto) Baso % (Auto) Neut # (Auto) Lymph # (Auto) [place] # (Auto) Eos # (Auto) Baso # (Auto) PT INR APTT D-Dimer 399 H Sodium 139 Potassium 4.2 Chloride 105 Carbon Dioxide 24 BUN 28 H Creatinine 1.49 H Estimated GFR 45.6 L BUN/Creatinine Ratio 18.8 Glucose 139 H Lactate 1.5 Calcium 9.5 Magnesium 2.1 Total Bilirubin 0.8 AST 32 ALT 42 Alkaline Phosphatase 90 Total Creatine Kinase 54 L CK-MB (CK-2) TNP CK-MB (CK-2) Rel Index TNP Troponin I 0.092 H NT-Pro-B Natriuret Pep Total Protein 7.5 Albumin 4.1 Globulin 3.4 Albumin/Globulin Ratio 1.2 Procalcitonin SARS-CoV-2 (PCR) 10/08/20 10/08/20 10/08/20 03:10 04:28 05:37 WBC RBC Hgb Hct MCV MCH MCHC RDW Plt Count Neut % (Auto) Lymph % (Auto) [place] % (Auto) Eos % (Auto) Baso % (Auto) Neut # (Auto) Lymph # (Auto) [place] # (Auto) Eos # (Auto) Baso # (Auto) PT 13.3 H INR 1.2 APTT D-Dimer Sodium Potassium Chloride Carbon Dioxide BUN Creatinine Estimated GFR BUN/Creatinine Ratio Glucose Lactate Calcium Magnesium Total Bilirubin AST ALT Alkaline Phosphatase Total Creatine Kinase CK-MB (CK-2) CK-MB (CK-2) Rel Index Troponin I 0.108 H NT-Pro-B Natriuret Pep Total Protein Albumin Globulin Albumin/Globulin Ratio Procalcitonin SARS-CoV-2 (PCR) Negative 10/08/20 10/08/20 10/08/20 05:37 09:00 15:08 WBC RBC Hgb Hct MCV MCH MCHC RDW Plt Count Neut % (Auto) Lymph % (Auto) [place] % (Auto) Eos % (Auto) Baso % (Auto) Neut # (Auto) Lymph # (Auto) [place] # (Auto) Eos # (Auto) Baso # (Auto) PT INR APTT D-Dimer Sodium 138 Potassium 4.0 Chloride 104 Carbon Dioxide 27 BUN 26 H Creatinine 1.40 H Estimated GFR 49.0 L BUN/Creatinine Ratio 18.6 Glucose 105 Lactate Calcium 9.6 Magnesium Total Bilirubin AST ALT Alkaline Phosphatase Total Creatine Kinase CK-MB (CK-2) CK-MB (CK-2) Rel Index Troponin I 0.207 H* 0.395 H* NT-Pro-B Natriuret Pep 21660 H Total Protein Albumin Globulin Albumin/Globulin Ratio Procalcitonin SARS-CoV-2 (PCR) [facility] Medical History (Updated 10/08/20 @ 05:45 by RUI Singer) Atrial fibrillation, new onset CHF (congestive heart failure) Coronary artery disease History of prostate cancer Hypertension Surgical History (Updated 10/08/20 @ 05:45 by RUI Singer) History of coronary artery bypass graft History of prostatectomy Family History (Updated 10/08/20 @ 05:46 by RUI Singer) Father Emphysema lung Prostate cancer Mother Breast cancer Dementia Social History household members: none Smoking Status: Former smoker alcohol intake: never Quality VTE Deep Vein Thrombosis/Pulmonary Embolism Present on Admission: No
[2020-10-08 18:11] LABS: BUN Creatinine Ratio 21.3 (6-22); Blood Urea Nitrogen 30 mg/dL (9-20); Calcium 9.2 mg/dL (8.4-10.2); Carbon Dioxide 23 mmol/L (22-32); Chloride 104 mmol/L (98-107); Estimated Glomerular Filt Rate 48.6 mL/min (>60); Glucose 106 mg/dL (80-110); HEMOLYSIS < 15 (0-50); Potassium 4.2 mmol/L (3.4-5.1); Sodium 136 mmol/L (137-145)
[2020-10-08] MEDS: SENNOSIDES 8.6 MG TABLET 17.2 MG PO (21:05)
[2020-10-08] MEDS: METOPROLOL ER 50 MG TABLET PO (21:05)
[2020-10-08 22:53] LABS: Troponin I 0.589 ng/mL (0.01-0.034)
[2020-10-09] VITALS (9 sets, daily range): BP systolic 135–152; BP diastolic 58–84; PULSE 65–73; RESP 18–19; TEMP 36.2–36.4; O2SAT 93–97
[2020-10-09] MEDS: ENOXAPARIN 60 MG/0.6 ML SYRINGE 65 MG SUBCUT (00:23)
--- NOTE | 2020-10-09 00:59 | PC.NURSE ---
patient is alert and oriented. Breath sounds CTA with sat of 95% on oxygen at 1L/min per NC; denies SOB at rest but states he does become SOB with activity. HRR but bradycardic with telemetry reading of SB w/BBB + junctional rhythm and rate of 47. Denies nausea. BT present and abdomen is soft. Denies dysuria, frequency or urgency and is voiding per urinal. Is able to turn himself in bed. Up to bathroom with SBA. Denies pain. Wearing bilateral calf SCD's. Reports having had fall in past 3 months so fall risk score is high and bed alarm is activated.
[2020-10-09 06:25] LABS: INR 1.2 (0.9-1.3); Prothrombin Time 14.1 SECONDS (10.1-12.7)
[2020-10-09 06:40] LABS: BUN Creatinine Ratio 23.6 (6-22); Blood Urea Nitrogen 33 mg/dL (9-20); Calcium 9.1 mg/dL (8.4-10.2); Carbon Dioxide 24 mmol/L (22-32); Chloride 105 mmol/L (98-107); Glucose 89 mg/dL (80-110); HEMOLYSIS < 15 (0-50); Sodium 134 mmol/L (137-145)
[2020-10-09 07:16] LABS: Troponin I 0.452 ng/mL (0.01-0.034)
[2020-10-09] MEDS: SODIUM CHLORIDE 0.9% FLUSH 10 ML IV (08:18)
[2020-10-09] MEDS: ASPIRIN 81 MG CHEW TAB PO (08:18)
[2020-10-09] MEDS: FUROSEMIDE 20 MG TABLET PO (08:18)
[2020-10-09] MEDS: METOPROLOL ER 50 MG TABLET PO (08:18)
--- NOTE | 2020-10-09 13:32 | PC.NURSE ---
Pt DC education given, discussed- diagnosis information, medications, worsening symptoms, activity, diet, f/u appts, s/s of stroke. All questions answered. Pt dressed and packed independently. IV and tele removed. Pt escorted by w/c to friend's POV by RN.
--- NOTE | 2020-10-09 13:49 | PC.NURSE ---
Dr. Jean Baptiste made aware of bradycardia on tele reading, and a change to the metoprolol rx was made. Called and LM on pt's house phone to inform him of change and to follow pharmacy instructions. Encouraged him to reach out to PCP or pharmacist with any questions or concerns.
--- NOTE | 2020-10-09 17:53 | P.DS_ITS ---
History of Present Illness History of Present Illness Chief complaint: SOB Narrative: Patient is a 80-year-old male Duane Zamora who presented to the ED with a chief complaint of increasing shortness of breath. He states that for the last 1 month he is needed to sleep in a recliner which is abnormal for him. He has significant shortness of breath with very minimal exertion. He denies any fever or cough. He does have some nonproductive cough which is chronic does not seem to be any worse. He denies fever or chills. He is only taking metoprolol and no longer takes aspirin. He states that his doctor took him off most of the other medications because he was unable to tolerate them. Patient has a past medical history of hypertension, atrial fibrillation, CHF, CAD with prior CABG and recent stenting reported 03/2020. Patient was admitted in August 2020 complaining of similar symptoms, was diagnosed with atrial fibrillation that resolved during hospitalization and acute systolic heart failure per echo 08/09/2020 with an EF 15-20%. While in the ED patient was trialed with ambulation and said to have desatted into the 80s with worsening dyspnea. Dr. Choe did verbalize concerns regarding memory/cognitive issues. Once on the floor patient demonstrated no signs of fluid overload or peripheral edema, patient reported marked improvement in his shortness of breath following the 40 mg of Lasix in the ED. Patient's vitals upon admit temp 98.3?, BP 144/77, HR 94, RR 20, 88% O2 sat. In the ED patient was dyspneic, tachypneic, endorsed orthopnea, and had moments of conversational dyspnea. Labs: Patient CBC was unremarkable, on prior admit patient's initial creatinine was normal, today's creatinine slightly increased from discharge 1.49, BUN 28, glucose 139, EGFR decreased from hospitalization 45.6, D-dimer 399, lactate WNL, Mag WNL, proBNP elevated at 29,400. Troponins demonstrating only a slight increase up 1# 0.092, 2# 0.108.CXR: Preliminary report bibasilar consolidation with left effusion. EKG:Prior ECG tracings: available for review. Sinus rhythm heart rate 77 frequent PVCs noted. Repeat EKG shows a normal sinus rhythm rate 61 p.r. interval 162 QRS [address] changes no T-wave inversions in V5 and V6 significantly improved from prior EKGs. Patient admitted with dyspnea/congestive systolic heart failure exacerbation. Discharge Providers Provider Date of admission: 10/08/20 04:16 Discharge Date: 10/09/20 Primary care physician: Rene Claros MD Consults: 10/08/20 00:50 Consult to Respiratory Therapy Evaluate & Treat Comment: Physician Instructions: Evaluate and treat Discharge provider: Angel Jean Baptiste MD Summary Hospital Course Discharge Diagnosis: 1. Acute on chronic systolic heart failure 2. Severe ischemic cardiomyopathy 3. Coronary artery disease, status post multiple stents 4. Non ST-elevation [place] 5. Chronic kidney disease stage 3 6. Paroxysmal atrial fibrillation 7. Essential hypertension 8. Cognitive impairment Patient was admitted with acute on chronic dyspnea. Symptoms rapidly improved after initial treatment with IV Lasix. He denied any chest pains but had rising troponin without acute ischemic findings on EKG. It was felt he may have had coronary ischemia secondary to acute CHF. He does have history of multiple coronary stents and had 4 stents at [facility] in March 2020. Subsequently it seems he has had difficulty tolerating medications and had some medications discontinued or reduced and was not on any diuretic therapy at time of this admission. In addition he has had persistent chronic shortness of breath which became acutely worse prior to admission. His echo on 08/09/2020 showed a severely dilated LV with LVEF 15-20% and severe global hypokinesis of the LV. There was mild aortic, mitral and tricuspid regurgitation and moderate left-sided pleural effusion noted on echo. Patient is dyspnea complaints were much improved with diuresis. We are sending him home on increased dose of beta-wolf and started patient on furosemide and spironolactone as well. It seems he was taken off of JESSICA-inhibitor or ARB and not clear he would tolerate going back on these. Blood pressures have been normal to mildly hypertensive. Patient is advised to follow up with Cardiology and PCP. He also had OT do memory evaluation with MOCA of 14/30 indicating severe impairment although hard to fully interpret since patient was somewhat on cooperative. Recommend additional outpatient cognitive evaluation. Likely he has at least mild degree of impairment. Status at Discharge Cognitive/behavioral status at discharge: oriented Functional status at discharge: independent ambulation Overall status at discharge: patient is back to baseline Time Spent with Patient Time spent: Greater than 30 minutes Exam Vital Signs (past 8 hours): - 10/09/20 10:00 10/09/20 11:39 10/09/20 11:47 Temperature 97.5 F L Pulse Rate 67 Respiratory Rate 19 Blood Pressure 135/84 Pulse Oximetry 95 97 95 Oxygen Delivery Method Room Air Oxygen Flow Rate 0 Objective Labs Result Diagrams: 10/08/20 00:50 10/09/20 06:10 Labs: Laboratory Results - last 24 hr 10/08/20 10/08/20 10/09/20 15:08 22:06 06:10 PT 14.1 H INR 1.2 Sodium 136 L Potassium 4.2 Chloride 104 Carbon Dioxide 23 BUN 30 H Creatinine 1.41 H Estimated GFR 48.6 L BUN/Creatinine Ratio 21.3 Glucose 106 Calcium 9.2 Magnesium 2.0 Troponin I 0.589 H* 10/09/20 10/09/20 10/09/20 06:10 06:10 06:10 PT INR Sodium 134 L Potassium 4.0 Chloride 105 Carbon Dioxide 24 BUN 33 H Creatinine 1.40 H Estimated GFR 49.0 L BUN/Creatinine Ratio 23.6 H Glucose 89 Calcium 9.1 Magnesium 2.0 Troponin I 0.452 H* [facility] Medical History (Updated 10/08/20 @ 05:45 by RUI Singer) Atrial fibrillation, new onset CHF (congestive heart failure) Coronary artery disease History of prostate cancer Hypertension Surgical History (Updated 10/08/20 @ 05:45 by RUI Singer) History of coronary artery bypass graft History of prostatectomy Family History (Updated 10/08/20 @ 05:46 by RUI Singer) Father Emphysema lung Prostate cancer Mother Breast cancer Dementia Social History household members: none Smoking Status: Former smoker alcohol intake: never Discharge Plan Discharge Plan Patient Disposition: Home Provider Discharge Comment: have blood test in 1 week to monitor kidney function and electrolytes on new diuretic therapy. Discharge orders & Medications Prescriptions: New furosemide 40 mg tablet 40 mg PO DAILY Qty: 30 RF: 0 spironolactone 25 mg tablet 25 mg PO DAILY Qty: 30 RF: 0 metoprolol succinate 50 mg tablet extended release 24 hr 50 mg PO DAILY Qty: 30 RF: 0 Continued aspirin 81 mg Tablet 81 mg PO DAILY RF: 0 Discontinued metoprolol succinate 25 mg Tablet Extended Release 24 Hr 25 mg PO DAILY RF: 0 Follow up/Referrals: Rene Claros MD [Primary Care Provider] - Diet/Activity/Treatments Diet: Diet as Tolerated Visit Report/Discharge Packet Instructions: Cardiac Troponin, Heart Failure Discharge Data Primary Care Provider: Rene Claros Attending Provider: Cheli Hook VTE Deep Vein Thrombosis/Pulmonary Embolism Present on Admission: No
== END 2020-10-09 13:30 | disposition home or self-care (01) ==
LOC: ED 04:06 → AC 04:17
PROVIDERS: Internal Medicine; Admitting Provider Nurse Practitioner Family; Emergency Provider Emergency Medicine; Family Provider Family Medicine; PCP Family Medicine; Referring Provider Emergency Medicine; Visit Provider Nurse Practitioner Family
DX: I13.0 Hypertensive heart and chronic kidney disease with heart failure and stage 1 through stage 4 chronic kidney disease, or unspecified chronic kidney disease (principal); I50.23 Acute on chronic systolic (congestive) heart failure; I11.0 Hypertensive heart disease with heart failure; N18.30 Chronic kidney disease, stage 3 unspecified; I25.10 Atherosclerotic heart disease of native coronary artery without angina pectoris; I48.0 Paroxysmal atrial fibrillation; Z85.46 Personal history of malignant neoplasm of prostate; I25.5 Ischemic cardiomyopathy; G31.84 Mild cognitive impairment of uncertain or unknown etiology; Z95.1 Presence of aortocoronary bypass graft; R77.8 Other specified abnormalities of plasma proteins; Z20.822 Contact with and (suspected) exposure to COVID-19
CPT/HCPCS: 36415; 71045; 80048; 80053; 81003; 82550; 83605; 83735; 83880; 84145; 84484; 85025; 85379; 85610; 85730; 87040; 87635; 93005; 94760; 96372; 96374; 99284; C9803; G0378; J1650; J1940

== ENCOUNTER 2021-01-10 14:31 | Emergency (ER) | payer MEDICARE, SELFPAY ==
[2020-10-08 06:25] VITALS: BMI 20.7
--- NOTE | 2021-01-10 14:48 | DI.RAD.S_ITS ---
PROCEDURE: XR CHEST 1V INDICATIONS: chest pain TECHNIQUE: One view of the chest was acquired. COMPARISON: [facility], CR, XR CHEST 1V, 10/08/2020, 1:06. [facility], CR, XR CHEST 1V, 08/09/2020, 0:10. FINDINGS: Surgical changes and devices: None. Lungs and pleura: Lungs are abnormal with a chronic interstitial prominence, mild in severity. No pleural effusions or pneumothorax. Mediastinum: Mediastinal contours appear normal. Heart size is mildly enlarged, globally. Bones and chest wall: No suspicious bony lesions. Overlying soft tissues appear unremarkable. IMPRESSION: Large lung volumes, suspect COPD with superimposed chronic CHF but no definite acute disease is found as source of current chest pain. Dictated by: Javier Bhatti M.D. on 01/10/2021 at 15:13 Approved by: Javier Bhatti M.D. on 01/10/2021 at 15:13
[2021-01-10 15:00] VITALS: BP 98/54; PULSE 66; RESP 15; RESP 22; O2SAT 98; O2SAT 99
--- NOTE | 2021-01-10 15:01 | ED_ITS ---
HPI - Chest Pain General Chief Complaint: Chest Pain Stated Complaint: SWEATS/LT ARM ACHES/HEART ATTACK 3 WEEKS AGO Time Seen by Provider: 01/10/21 14:51 History of Present Illness HPI narrative: The patient has a history of CAD. He underwent angioplasty with 4 stents placed last year at [facility]. He has seen his PCM since in with chest pain. Today he was sitting calmly on a couch watching TV. While sitting he developed sudden on of sharp stabbing left-sided chest pain. He also developed severe dyspnea and weakness. He has no ongoing palpitations. Initial pain was 8/10. He is now 3/10. He took a baby aspirin home. He denies recent illness. He has had no headache, cough or congestion. Does not have chronic lung problems. He has no peripheral edema. He has a history of PAF. He currently has no palpitations or tachycardia. Related Data Home Medications Medication Instructions Recorded Confirmed aspirin 81 mg tablet 81 mg PO DAILY 08/09/20 10/08/20 Previous Rx's Medication Instructions Recorded furosemide 40 mg tablet 40 mg PO DAILY #30 tab 10/09/20 metoprolol succinate 50 mg 50 mg PO DAILY #30 tab 10/09/20 tablet,extended release 24 hr spironolactone 25 mg tablet 25 mg PO DAILY #30 tab 10/09/20 Allergies Allergy/AdvReac Type Severity Reaction Status Date / Time No Known Allergies Allergy Verified 03/30/20 10:30 Review of Systems Constitutional Constitutional: Reports as per HPI, Denies body ache(s), Denies chills, Denies fatigue and Denies fever(s) Eyes Comments: No eye complaints. ENT Ears, Nose, Mouth, and Throat: Denies dysphagia, Denies vertigo, Reports dizziness and Denies sore throat Comments: No headache. Cardiovascular Cardiovascular: Reports as per HPI Respiratory Respiratory: Reports as per HPI, Denies chest congestion and Denies cough Gastrointestinal Gastrointestinal: Denies abdominal pain and Denies dysphagia Genitourinary Comments: No complaints. Musculoskeletal Comments: No extremity pain or edema. Integumentary/Breasts Skin/Breast: Denies lesions and Denies rash Neurologic Neurologic: Denies confusion, Denies vertigo and Reports dizziness Psychiatric Psychiatric: Denies confusion Endocrine Endocrine: Denies fatigue Hematologic/Lymphatic On Anticoagulants: No Patient History Medical History Atrial fibrillation, new onset CHF (congestive heart failure) Coronary artery disease History of prostate cancer Hypertension Surgical History History of coronary artery bypass graft History of prostatectomy Family History Father Emphysema lung Prostate cancer Mother Breast cancer Dementia Social History household members: none Smoking Status: Former smoker alcohol intake: never Smoking Status: Former smoker alcohol intake frequency: 0-2 drinks per day Substance Use Type: does not use Exam Const General: cooperative, comfortable and frail appearing Nutritional Appearance: thin HENMT Head: normal to inspection Ears: TM's normal bilaterally and TM abnormal Nose: nares normal Face and sinus: normal facial exam Mouth: oral mucosae normal, oropharynx normal and oral mucosa abnormal Throat: posterior oropharynx normal Eyes General: appearance normal, both eyes and all related structures Pupils: PERRL EOM: EOM intact bilaterally Neck Neck: normal visual inspection and No JVD Thyroid: thyroid normal Chest Chest: normal inspection of the chest Resp Effort & Inspection: normal respiratory effort Auscultation: clear to auscultation bilaterally Cardio Rate: regular rate Rhythm: regular rhythm Heart Sounds: S1 normal, S2 normal and no murmurs GI Inspection: normal to inspection Palpation: soft and No tender Auscultation: normal bowel sounds Back/Spine/Pelvis Back: normal to inspection and No back tenderness Skin General: no rashes or lesions noted Neuro General: patient alert, patient awake and patient oriented x3 Extrem Other: No lower extremity edema or calf tenderness Psych Appearance: grossly normal Course Course Course Narrative: The patient has EKG findings consistent with anterior septal PA.. The patient received baby aspirin. His blood pressure was 99 systolic. Nitrates and beta-blockers have been avoided. He was started on heparin drip. He was feeling better, he denied morphine. This case was talk to Dr. Marshall, ER doctor at [facility]. The patient has been transferred to [facility] by 911, anticipating the patient going to the [facility] [place] Orders Ordered: ED Orders 01/10/21 14:48 XR chest 1V Stat EKG-12 Lead Stat 01/10/21 14:50 Complete Blood Count AUTO DIFF Stat Comprehensive Metabolic Panel Stat Lipase Stat Troponin & CK Cardiac Panel Stat MDM - Chest Pain Lab Data Result diagrams: 01/10/21 14:50 01/10/21 14:50 ECG Data Attestation: I personally reviewed and interpreted this ECG as follows: (Normal sinus rhythm rate 61 beats per minute. Left axis deviation. ST elevation in V2, with with ST depression in 3 and AVF.) Critical Care Time Critical Care Time Critical Care Time: Yes Total Critical Care Time: 25 Attestation: The patient was evaluated. Past medical history was reviewed. Existing data was reviewed. His EKG triggered a STEMI code. The necessary management was discussed with the patient. Consultation with your doctor of the accepting facility was done. Discharge Plan Departure Patient Disposition: [facility] Clinical Impression: Acute ST elevation myocardial infarction (STEMI) due to occlusion of septal branch of left anterior descending (LAD) coronary artery Prescriptions: No Action aspirin 81 mg Tablet 81 mg PO DAILY RF: 0 furosemide 40 mg tablet 40 mg PO DAILY Qty: 30 RF: 0 spironolactone 25 mg tablet 25 mg PO DAILY Qty: 30 RF: 0 metoprolol succinate 50 mg tablet extended release 24 hr 50 mg PO DAILY Qty: 30 RF: 0 Referrals: Rene Claros MD [Primary Care Provider] -
[2021-01-10 15:02] VITALS: BP 98/54; PULSE 66; RESP 16; O2SAT 95
[2021-01-10 15:04] LABS: Add Manual Diff / Slide Review NO; Basophils Absolute Auto 0 /uL (0-100); Basophils Percent Auto 0.8 % (0-2); Eosinophils Absolute Auto 200 /uL (0-450); Eosinophils Percent Auto 3.1 % (2-4); Hematocrit 40.8 % (41-53); Hemoglobin 13.8 g/dL (13.5-17.5); Lymphocytes Absolute Auto 1000 /uL (1100-4500); Mean Corpuscular HGB Conc 33.8 % (30-36); Mean Corpuscular Hemoglobin 30.3 PG (26-34); Mean Corpuscular Volume 89.5 fL (80-100); Monocytes Absolute Auto 500 /uL (0-900); Monocytes Percent Auto 9.1 % (3-14); Neutrophils Absolute Auto 3500 /uL (1500-7000); Platelet Count 146 X10^3/uL (150-400); Red Blood Cell Count 4.56 X10^6/uL (4.5-5.9); Red Cell Distribution Width 14.7 % (11.6-14.8); White Blood Cell Count 5.2 X10^3/uL (4.5-11.0)
[2021-01-10 15:12] VITALS: BP 95/69; PULSE 62; RESP 21; O2SAT 98
[2021-01-10 15:15] VITALS: BP 95/69; PULSE 68; RESP 22; O2SAT 97
[2021-01-10 15:16] LABS: Alanine Aminotransferase 15 IU/L (<50); Albumin 4.4 g/dL (3.5-5.0); Albumin Globulin Ratio 1.2 (1.0-2.8); Alkaline Phosphatase 80 U/L (38-126); Aspartate Aminotransferase 26 IU/L (17-59); BUN Creatinine Ratio 21.8 (6-22); Bilirubin Total 0.5 mg/dL (0.2-1.3); Blood Urea Nitrogen 32 mg/dL (9-20); Calcium 9.5 mg/dL (8.4-10.2); Carbon Dioxide 28 mmol/L (22-32); Chloride 103 mmol/L (98-107); Creatine Kinase 52 U/L (55-170); Estimated Glomerular Filt Rate 46.2 mL/min (>60); Globulin 3.6 g/dL (1.7-4.1); Glucose 117 mg/dL (80-110); HEMOLYSIS < 15 (0-50); Lipase 72 U/L (23-300); Potassium 4.3 mmol/L (3.4-5.1); Sodium 138 mmol/L (137-145)
[2021-01-10] MEDS: HEPARIN 5,000 UNIT/ML VIAL 5300 UNIT IV (15:18)
[2021-01-10] MEDS: HEPARIN DRIP 25,000 UNIT/500 ML IV.SOLN 15.894 UNIT IV (15:19)
[2021-01-10] MEDS: SODIUM CHLORIDE 0.9% 1,000 ML 150 ML IV (15:19)
[2021-01-10] MEDS: ASPIRIN 81 MG CHEW TAB 324 MG PO (15:19)
[2021-01-10 15:21] VITALS: BP 108/60; PULSE 69; RESP 24; O2SAT 97
[2021-01-10 15:26] LABS: Troponin I 0.027 ng/mL (0.01-0.034)
--- NOTE | 2021-01-10 15:32 | PC.NURSE ---
Pt was put on the monitor worker in triage. MD at bedside interpreting STEMI. Sent to [facility], they accepted. Bilat AC IVs initiated, meds given. EMS here to transfer to [facility]. Taking pt on heparin drip. VS have been stable. Pts neighbor has been notified of transfer.
[2021-01-10 16:11] LABS: COVID19 -Nasal RAPID Negative (Negative)
== END 2021-01-10 15:30 | disposition short-term general hospital (02) ==
PROVIDERS: Emergency Provider Emergency Medicine; Family Provider Family Medicine; PCP Family Medicine
DX: I21.02 ST elevation (STEMI) myocardial infarction involving left anterior descending coronary artery (principal); R06.00 Dyspnea, unspecified; R42 Dizziness and giddiness; Z20.822 Contact with and (suspected) exposure to COVID-19
CPT/HCPCS: 36415; 71045; 80053; 82550; 83690; 84484; 85025; 87635; 93005; 96374; 96375; 99284; 99291; C9803; J1644

== ENCOUNTER 2021-07-20 13:15 | Emergency (ER) | payer MEDICARE, SELFPAY ==
[2020-10-08 06:25] VITALS: BMI 20.7
[2021-07-20] VITALS (13 sets, daily range): BP systolic 141–178; BP diastolic 68–97; PULSE 61–76; RESP 18–31; TEMP 36.8; O2SAT 94–97; BMI 21.6
--- NOTE | 2021-07-20 13:36 | DI.RAD.S_ITS ---
PROCEDURE: XR CHEST 2V INDICATIONS: shortness of breath TECHNIQUE: 2 views of the chest were acquired. COMPARISON: [facility], CR, XR CHEST 1V, 01/10/2021, 15:01. FINDINGS: Surgical changes and devices: None. Lungs and pleura: Left greater than right bilateral pleural effusion is seen with blunting of bilateral costophrenic angles posteriorly. There is pulmonary vascular congestion. Bibasilar small infiltrate/atelectasis is likely present. No gross pneumothorax. Chronic emphysematous changes are again seen and unchanged. Mediastinum: There is tortuous thoracic aorta. Heart size is enlarged. Bones and chest wall: No suspicious bony abnormalities. Soft tissues appear unremarkable. IMPRESSION: CHF changes, cannot rule out underlying bibasilar infiltrate/atelectasis. COPD. No gross pneumothorax. Dictated by: Sourav Nair M.D. on 07/20/2021 at 13:59 Approved by: Sourav Nair M.D. on 07/20/2021 at 14:00
[2021-07-20 13:56] LABS: Add Manual Diff / Slide Review NO; Basophils Absolute Auto 0 /uL (0-100); Basophils Percent Auto 0.3 % (0-2); Eosinophils Absolute Auto 100 /uL (0-450); Eosinophils Percent Auto 0.8 % (2-4); Hematocrit 42.9 % (41-53); Hemoglobin 14.4 g/dL (13.5-17.5); Lymphocytes Absolute Auto 800 /uL (1100-4500); Lymphocytes Percent Auto 10.6 % (25-40); Mean Corpuscular HGB Conc 33.5 % (30-36); Mean Corpuscular Hemoglobin 29.9 PG (26-34); Mean Corpuscular Volume 89.3 fL (80-100); Monocytes Absolute Auto 600 /uL (0-900); Monocytes Percent Auto 8.4 % (3-14); Neutrophils Absolute Auto 6000 /uL (1500-7000); Neutrophils Percent Auto 79.9 % (50-75); Platelet Count 177 X10^3/uL (150-400); Red Blood Cell Count 4.81 X10^6/uL (4.5-5.9); White Blood Cell Count 7.5 X10^3/uL (4.5-11.0)
[2021-07-20 13:59] LABS: Alanine Aminotransferase 39 IU/L (<50); Albumin 4.3 g/dL (3.5-5.0); Albumin Globulin Ratio 1.3 (1.0-2.8); Alkaline Phosphatase 75 U/L (38-126); Aspartate Aminotransferase 34 IU/L (17-59); BUN Creatinine Ratio 23.8 (6-22); Blood Urea Nitrogen 29 mg/dL (9-20); Calcium 9.1 mg/dL (8.4-10.2); Carbon Dioxide 21 mmol/L (22-32); Chloride 103 mmol/L (98-107); Creatine Kinase 75 U/L (55-170); Estimated Glomerular Filt Rate 57.3 mL/min (>60); Globulin 3.4 g/dL (1.7-4.1); Glucose 131 mg/dL (80-110); HEMOLYSIS 24 (0-50); Potassium 4.8 mmol/L (3.4-5.1); Sodium 133 mmol/L (137-145); Total Protein 7.7 g/dL (6.3-8.2)
[2021-07-20 14:00] LABS: Lactate (Lactic Acid) 2.4 mmol/L (0.7-2.1)
[2021-07-20 14:10] LABS: NT-proBNP (BNP-Adult 18+) 26300 pg/mL (<450)
[2021-07-20 14:20] LABS: COVID19 -Nasal RAPID Negative (Negative)
--- NOTE | 2021-07-20 14:31 | ED_ITS ---
HPI - SOB/Dyspnea General Chief Complaint: Shortness of Breath/Dyspnea Stated Complaint: Cant breathe Time Seen by Provider: 07/20/21 14:18 Source: patient Mode of arrival: Ambulatory Limitations: no limitations History of Present Illness HPI Narrative: The patient presents with dyspnea on exertion. He has a history of CAD, with stents. He has a history of CHF. He has dyspnea on exertion, with orthopnea. He has no associated peripheral edema. He is not having chest pain with the symptoms. He has a known history of CHF. He will angioplasty with 4 stents placed last year at [facility]. He presented here 4 weeks later with a STEMI. He is transferred emergently is scheduled Hospital, underwent a repeat catheterization. From the patient's history apparently one of the stents had collapsed. He is compliant with medications. Other than dyspnea on exertion, he has no acute illness. Related Data Home Medications Medication Instructions Recorded Confirmed aspirin 81 mg tablet 81 mg PO DAILY 08/09/20 10/08/20 Previous Rx's Medication Instructions Recorded furosemide 40 mg tablet 40 mg PO DAILY #30 tab 10/09/20 metoprolol succinate 50 mg 50 mg PO DAILY #30 tab 10/09/20 tablet,extended release 24 hr spironolactone 25 mg tablet 25 mg PO DAILY #30 tab 10/09/20 Allergies Allergy/AdvReac Type Severity Reaction Status Date / Time No Known Allergies Allergy Verified 07/20/21 13:33 Review of Systems Constitutional Constitutional: Reports as per HPI, Denies chills, Reports fatigue, Denies fever(s), Denies headache(s) and Reports weakness Eyes Eyes: Denies change in vision ENT Ears, Nose, Mouth, and Throat: Denies vertigo, Denies dizziness, Denies headache(s), Denies neck pain, Denies sinus pain and Denies sore throat Cardiovascular Cardiovascular: Denies chest pain, Denies syncope, Denies pedal edema, Denies l eg edema, Reports dyspnea on exertion and Reports orthopnea Respiratory Respiratory: Denies chest congestion, Denies cough and Reports dyspnea on exert ion Gastrointestinal Gastrointestinal: Denies abdominal pain, Denies cramping and Denies nausea Genitourinary Genitourinary: Denies dysuria and Denies urinary frequency Musculoskeletal Musculoskeletal: Denies back pain and Denies neck pain Integumentary/Breasts Skin/Breast: Denies lesions and Denies rash Neurologic Neurologic: Denies confusion, Denies vertigo, Denies dizziness, Denies syncope, Denies headache(s) and Reports weakness Psychiatric Psychiatric: Denies confusion Endocrine Endocrine: Reports fatigue Hematologic/Lymphatic On Anticoagulants: No Patient History Medical History Atrial fibrillation, new onset CHF (congestive heart failure) Coronary artery disease History of prostate cancer Hypertension Surgical History History of coronary artery bypass graft History of prostatectomy Family History Father Emphysema lung Prostate cancer Mother Breast cancer Dementia Social History household members: none Smoking Status: Former smoker alcohol intake: never Smoking Status: Former smoker alcohol intake frequency: 0-2 drinks per day Substance Use Type: does not use Exam Initial Vital Signs Initial Vital Signs: Vital Signs Pulse Rate 76 07/20/21 13:19 Pulse Oximetry 95 07/20/21 13:19 Const General: cooperative, healthy appearing, comfortable, well developed and well g roomed [facility] Head: normal to inspection, normocephalic and atraumatic Mouth: oral mucosae normal Throat: posterior oropharynx normal Eyes General: appearance normal, both eyes and all related structures Neck Neck: full ROM and No JVD Chest Chest: normal inspection of the chest Resp Effort & Inspection: normal respiratory effort Auscultation: clear to auscultation bilaterally Cardio Palpation: normal PMI Rate: regular rate Rhythm: regular rhythm Heart Sounds: S1 normal, S2 normal, no click and no murmurs GI Inspection: normal to inspection Palpation: soft and No tender Back/Spine/Pelvis Back: normal to inspection, No back tenderness, No CVA tenderness and No ecchymosis Thoracic/Lumbar Spine: thoracic and lumbar spine normal to inspection Skin General: no rashes or lesions noted Neuro General: patient alert, patient awake, patient oriented x3 and no focal motor deficits Extrem General: normal to inspection, no pedal edema and no calf tenderness Psych Mental Status: mental status grossly normal Course Course Course Narrative: The patient did not take his oral dose of Lasix this morning, this is a, decision any time he travels. He had significant diuresis following IV Lasix. He is dramatically elevated BNP. His vital stable, including O2 sat of 95% on room air. He is on Lasix and spironolactone. His potassium level is 4.7. He is advised increase his Lasix to 80 mg daily. He has cardiology follow-up, I gave him contact information for Dr. Colmenares here in [place]. He should follow-up with his PCM in the coming week to re-evaluate his electrolytes. He is advised to return here if necessary. Orders Ordered: ED Orders 07/20/21 13:25 COVID19 -Nasal swab/Pre-Proc Stat Complete Blood Count AUTO DIFF Stat Comprehensive Metabolic Panel Stat Lactate (Lactic Acid) Stat NT-proBNP (BNP-Adult 18+) Stat Troponin & CK Cardiac Panel Stat 07/20/21 13:36 XR chest 2V Stat EKG-12 Lead Stat Discontinued Medications Furosemide (Furosemide 40 Mg/4 Ml Vial) 40 mg IV NOW ONE Stop: 07/20/21 14:31 Last Admin: 07/20/21 15:38 Dose: 40 mg Documented by: FREDDY Vital Signs Vital signs: Vital Signs - 8 hr 07/20/21 13:19 07/20/21 13:20 07/20/21 13:30 Temperature Pulse Rate 76 76 63 Respiratory Rate 25 H Blood Pressure 178/81 H Pulse Oximetry 95 95 97 07/20/21 13:31 07/20/21 13:33 07/20/21 14:00 Temperature 98.2 F Pulse Rate 63 72 61 Respiratory Rate 24 18 24 Blood Pressure 168/97 H 178/81 H Pulse Oximetry 96 95 95 07/20/21 14:30 07/20/21 15:00 07/20/21 15:30 Temperature Pulse Rate 66 61 61 Respiratory Rate 22 25 H 22 Blood Pressure 155/80 H 168/73 H Pulse Oximetry 96 96 94 07/20/21 16:00 Temperature Pulse Rate 63 Respiratory Rate 24 Blood Pressure 152/70 H Pulse Oximetry 94 MDM - SOB/Dyspnea Lab Data Result diagrams: 07/20/21 13:25 07/20/21 13:25 Labs: Lab Results 07/20/21 07/20/21 07/20/21 Range/Units 13:25 13:25 13:25 WBC 7.5 (4.5-11.0) X10^3/uL RBC 4.81 (4.5-5.9) X10^6/uL Hgb 14.4 (13.5-17.5) g/dL Hct 42.9 (41-53) % MCV 89.3 (80-100) fL MCH 29.9 (26-34) PG MCHC 33.5 (30-36) % RDW 14.0 (11.6-14.8) % Plt Count 177 (150-400) X10^3/uL Neut % (Auto) 79.9 H (50-75) % Lymph % (Auto) 10.6 L (25-40) % [place] % (Auto) 8.4 (3-14) % Eos % (Auto) 0.8 L (2-4) % Baso % (Auto) 0.3 (0-2) % Neut # (Auto) 6000 (8172-0445) /uL Lymph # (Auto) 800 L (8925-7266) /uL [place] # (Auto) 600 (0-900) /uL Eos # (Auto) 100 (0-450) /uL Baso # (Auto) 0 (0-100) /uL Sodium 133 L (137-145) mmol/L Potassium 4.8 (3.4-5.1) mmol/L Chloride 103 (98-107) mmol/L Carbon Dioxide 21 L (22-32) mmol/L BUN 29 H (9-20) mg/dL Creatinine 1.22 (0.66-1.25) mg/dL Estimated GFR 57.3 L (>60) mL/min BUN/Creatinine Ratio 23.8 H (6-22) Glucose 131 H (80-110) mg/dL Lactate (0.7-2.1) mmol/L Calcium 9.1 (8.4-10.2) mg/dL Total Bilirubin 1.0 (0.2-1.3) mg/dL AST 34 (17-59) IU/L ALT 39 (<50) IU/L Alkaline Phosphatase 75 (38-126) U/L Total Creatine Kinase 75 (55-170) U/L CK-MB (CK-2) TNP CK-MB (CK-2) Rel Index TNP Troponin I 0.030 (0.01-0.034) ng/mL NT-Pro-B Natriuret Pep 66825 H (<450) pg/mL Total Protein 7.7 (6.3-8.2) g/dL Albumin 4.3 (3.5-5.0) g/dL Globulin 3.4 (1.7-4.1) g/dL Albumin/Globulin Ratio 1.3 (1.0-2.8) SARS-CoV-2 (PCR) Negative (Negative) 07/20/21 Range/Units 13:25 WBC (4.5-11.0) X10^3/uL RBC (4.5-5.9) X10^6/uL Hgb (13.5-17.5) g/dL Hct (41-53) % MCV (80-100) fL MCH (26-34) PG MCHC (30-36) % RDW (11.6-14.8) % Plt Count (150-400) X10^3/uL Neut % (Auto) (50-75) % Lymph % (Auto) (25-40) % [place] % (Auto) (3-14) % Eos % (Auto) (2-4) % Baso % (Auto) (0-2) % Neut # (Auto) (6070-7625) /uL Lymph # (Auto) (1499-8458) /uL [place] # (Auto) (0-900) /uL Eos # (Auto) (0-450) /uL Baso # (Auto) (0-100) /uL Sodium (137-145) mmol/L Potassium (3.4-5.1) mmol/L Chloride (98-107) mmol/L Carbon Dioxide (22-32) mmol/L BUN (9-20) mg/dL Creatinine (0.66-1.25) mg/dL Estimated GFR (>60) mL/min BUN/Creatinine Ratio (6-22) Glucose (80-110) mg/dL Lactate 2.4 H (0.7-2.1) mmol/L Calcium (8.4-10.2) mg/dL Total Bilirubin (0.2-1.3) mg/dL AST (17-59) IU/L ALT (<50) IU/L Alkaline Phosphatase (38-126) U/L Total Creatine Kinase (55-170) U/L CK-MB (CK-2) CK-MB (CK-2) Rel Index Troponin I (0.01-0.034) ng/mL NT-Pro-B Natriuret Pep (<450) pg/mL Total Protein (6.3-8.2) g/dL Albumin (3.5-5.0) g/dL Globulin (1.7-4.1) g/dL Albumin/Globulin Ratio (1.0-2.8) SARS-CoV-2 (PCR) (Negative) Imaging Data Chest x-ray: Radiologist's Impression: Launch?Image [address] [address] XRay Report Signed Patient: Duane Zamora MR#: [id number] : 1940 Acct:[id number] Age/Sex: 81 / M Date of Service: 07/20/21 Loc: ED Accession Number: [id number] ?? Procedure: XR chest 2V Ordering Provider: Rene Graves MD PROCEDURE:? XR CHEST 2V ? INDICATIONS:? shortness of breath ? TECHNIQUE:? 2 views of the chest were acquired.? ? COMPARISON:? [facility], CR, XR CHEST 1V, 01/10/2021, 15:01. ? FINDINGS:? ? Surgical changes and devices:? None.? ? Lungs and pleura:? Left greater than right bilateral pleural effusion is seen with blunting of bilateral costophrenic angles posteriorly.? There is pulmonary vascular congestion.? Bibasilar small infiltrate/atelectasis is likely present.? No gross pneumothorax.? Chronic emphysematous changes are again seen and unchanged. ? Mediastinum:? There is tortuous thoracic aorta.? Heart size is enlarged.? ? Bones and chest wall:? No suspicious bony abnormalities.? Soft tissues appear unremarkable.? ? IMPRESSION:? CHF changes, cannot rule out underlying bibasilar infilt rate/atelectasis.? COPD.? No gross pneumothorax. ? ? Dictated by: Sourav Nair M.D. on 07/20/2021 at 13:59 ? ? Approved by: Sourav Nair M.D. on 07/20/2021 at 14:00?? ECG Data Attestation: I personally reviewed and interpreted this ECG as follows: (Normal sinus rhythm rate 65 beats per minute. PVCs. LAD. LBBB. No acute ST elevation.) Discharge Plan Departure Patient Disposition: Home Clinical Impression: Congestive heart failure Instructions: Heart Failure Activity Restrictions/Additional Instructions: Increase furosemide to [address] Colmenares (cardiology) to arrange follow-up. See her local doctor next week to re-evaluate your electrolytes, and cardiac condition. Return here as needed. Prescriptions: No Action aspirin 81 mg Tablet 81 mg PO DAILY 0RF Label Comments: Has not taken in a few weeks- ran out furosemide 40 mg tablet 40 mg PO DAILY Qty: 30 0RF spironolactone 25 mg tablet 25 mg PO DAILY Qty: 30 0RF metoprolol succinate 50 mg tablet extended release 24 hr 50 mg PO DAILY Qty: 30 0RF Referrals: Rene Claros MD [Primary Care Provider] - Rakesh Colmenares MD [Physician] -
[2021-07-20] MEDS: FUROSEMIDE 40 MG/4 ML VIAL IV (15:38)
[2021-07-20 15:45] LABS: Reflexed Lactate in 2 Hours Y
== END 2021-07-20 17:32 | disposition home or self-care (01) ==
PROVIDERS: Emergency Provider Emergency Medicine; Family Provider Family Medicine; PCP Family Medicine
DX: I11.0 Hypertensive heart disease with heart failure (principal); I50.9 Heart failure, unspecified; Z87.891 Personal history of nicotine dependence; Z20.822 Contact with and (suspected) exposure to COVID-19
CPT/HCPCS: 36415; 71046; 80053; 82550; 83605; 83880; 84484; 85025; 87635; 93005; 93010; 96374; 99284; C9803; J1940